=== PATIENT | female | born 1955 | race Caucasian/White ===

== ENCOUNTER → 2016-10-17 | Outpatient (CLI) | payer MEDICARE, MEDICAID ==
[~2016-10-17] MED LIST: ALBU18HF IH; ALBU25PO2 IH; ALBUTEROL; AMLO10TA2 PO; APIX5TAB PO; ASPI-614 PO; ATEN25TA PO; CEFD300C37 PO; LEVO137T2 PO; LEVO150T PO; LEVO175T2 PO; METR500T PO; MONT10TA6 PO; NAPR500T3 PO; OMEP20CA9 PO; OXYB5TAB PO; OXYC1TAB7 PO; RANI150T4 PO; SIMV10TA3 PO; SUMA25TA3 PO; TRIA1TAB2 PO; VALS160T3 PO; [UNRECOGNIZED DRUG - REMARK]
== END | disposition home or self-care (01) ==
LOC: CARD 16:01
PROVIDERS: ATTEND Internal Medicine Critical Care Medicine
DX: J45.40 Moderate persistent asthma, uncomplicated (principal)
CPT/HCPCS: 94060; 94726; 94729

== ENCOUNTER 2016-11-30 15:42 | Emergency (ER) | payer MEDICARE, MEDICAID ==
[~2016-11-30] VITALS: Ht 160 cm; Wt 100.6 kg
[2016-11-30 17:00] LABS: HEMATOCRIT 36.8 % (34.6-47.8); HEMOGLOBIN 12.4 g/dL (11.7-16.4)
[2016-11-30 17:03] LABS: BLOOD UREA NITROGEN 18 mg/dL (7-18)
[2016-11-30 18:14] VITALS: BP 113/68
== END 2016-11-30 18:19 | disposition home or self-care (01) ==
LOC: ED 17:52
DX: I48.0 Paroxysmal atrial fibrillation (principal); I10 Essential (primary) hypertension; J44.9 Chronic obstructive pulmonary disease, unspecified; M19.90 Unspecified osteoarthritis, unspecified site; E78.00 Pure hypercholesterolemia, unspecified; Z86.73 Personal history of transient ischemic attack (TIA), and cerebral infarction without residual deficits
CPT/HCPCS: 36415; 71020; 80048; 82040; 84484; 85025; 85610; 85730; 93005; 99285

== ENCOUNTER 2016-12-17 17:56 | Emergency (ER) | payer MEDICARE, MEDICAID ==
[~2016-12-17] VITALS: Ht 157.5 cm; Wt 98.2 kg
[2016-12-17] MEDS ORDERED: SODIUM CHLORIDE 0.9% 1,000 ML IV ONE (18:18)
[2016-12-17] MEDS ORDERED: SODIUM CHLORIDE 0.9% 1,000ML IVBOLUS ONE ×2 (18:30)
[2016-12-17] MEDS ORDERED: ONDANSETRON 2MG/ML, 2ML IVPush ONE (18:30)
[2016-12-17 18:34] LABS: HEMATOCRIT 40.7 % (34.6-47.8); HEMOGLOBIN 13.7 g/dL (11.7-16.4); WHITE BLOOD COUNT 6.8 x10^3/uL (3.4-10)
[2016-12-17 18:39] LABS: ASPARTATE AMINO TRANSFERASE 15 U/L (15-37); BLOOD UREA NITROGEN 20 mg/dL (7-18)
[2016-12-17] MEDS ORDERED: IRBE150T25 PO (18:41)
[2016-12-17 18:48] LABS: IS PT STATUS REG ER OR PRE ER? YES
[2016-12-17] MEDS ORDERED: POTASSIUM CHLORIDE 20 MEQ TAB.ER.PRT PO ONE (19:00)
[2016-12-17] MEDS ORDERED: ONDANSETRON 2MG/ML, 2ML ONE (19:01)
[2016-12-17] MEDS ORDERED: POTASSIUM CHLORIDE 20 MEQ TAB.ER.PRT ONE (19:10)
[2016-12-17 19:24] LABS: PATH.CAST-FLAG NOT PRESENT; SPERM-FLAG NOT PRESENT; SRC-FLAG NOT PRESENT; XTAL-FLAG NOT PRESENT; YLC-FLAG NOT PRESENT
[2016-12-17 19:44] VITALS: BP 116/90
== END 2016-12-17 20:24 | disposition home or self-care (01) ==
LOC: ED 18:23
DX: N30.90 Cystitis, unspecified without hematuria (principal); E87.6 Hypokalemia; R53.1 Weakness; E78.5 Hyperlipidemia, unspecified; I10 Essential (primary) hypertension; I48.91 Unspecified atrial fibrillation; J44.9 Chronic obstructive pulmonary disease, unspecified; J45.909 Unspecified asthma, uncomplicated; E78.00 Pure hypercholesterolemia, unspecified; E07.9 Disorder of thyroid, unspecified; Z90.710 Acquired absence of both cervix and uterus; Z90.49 Acquired absence of other specified parts of digestive tract; Z88.8 Allergy status to other drugs, medicaments and biological substances
CPT/HCPCS: 36415; 71010; 80053; 81001; 84484; 85025; 87086; 93005; 96361; 96374; 99285; J2405; J7030

== ENCOUNTER → 2017-01-10 | Outpatient (CLI) | payer MEDICARE, MEDICAID ==
[~2017-01-10] MED LIST changes: +IRBE150T25 PO; +LEVO150T5 PO; +META800T PO; +breo INH
[2017-01-10 15:40] LABS: ASPARTATE AMINO TRANSFERASE 14 U/L (15-37); BLOOD UREA NITROGEN 24 mg/dL (7-18)
== END | disposition home or self-care (01) ==
LOC: CFH 13:41
PROVIDERS: ATTEND Internal Medicine Cardiovascular Disease
DX: I10 Essential (primary) hypertension (principal); I48.0 Paroxysmal atrial fibrillation
CPT/HCPCS: 36415; 71020; 80053; 85610; 85730

== ENCOUNTER 2017-01-13 08:00 | Observation (INO) | payer MEDICARE, MEDICAID ==
[~2017-01-13] VITALS: Ht 160 cm; Wt 100.3 kg
[~2017-01-13 08:00] MED LIST changes: -LEVO150T5 PO; -META800T PO; -breo INH
[2017-01-13] MEDS ORDERED: SODIUM CHLORIDE 0.9% 1,000 ML IV SCH (08:18)
[2017-01-13 08:24] VITALS: BP 127/87
[2017-01-13] MEDS ORDERED: CEFAZOLIN PMX 1GM/50ML 50 ML IVPB ONE (08:30)
[2017-01-13] MEDS ORDERED: breo INH (08:36)
[2017-01-13] MEDS ORDERED: META800T PO (08:36)
[2017-01-13] MEDS ORDERED: APIX5TAB PO (08:36)
[2017-01-13] MEDS ORDERED: LEVO150T5 PO (08:36)
[2017-01-13 08:52] LABS: HEMATOCRIT 41.7 % (34.6-47.8); HEMOGLOBIN 14.3 g/dL (11.7-16.4); WHITE BLOOD COUNT 5.6 x10^3/uL (3.4-10)
[2017-01-13] MEDS ORDERED: FENTANYL PF 100 MCG/2ML ONE (09:57)
[2017-01-13] MEDS ORDERED: CEFAZOLIN 1,000 MG ONE (09:57)
[2017-01-13] MEDS ORDERED: LIDOCAINE 2%, 20ML ONE ×2 (09:57→10:04)
[2017-01-13] MEDS ORDERED: MIDAZOLAM 1 MG/ML, 5ML ONE (09:57)
[2017-01-13] MEDS ORDERED: CEFAZOLIN PMX 1GM/50ML 50 ML ONE (09:57)
[2017-01-13] MEDS ORDERED: ZOLPIDEM 5MG TABLET PO PRN (11:00)
[2017-01-13 11:54] VITALS: BP 122/81
[2017-01-13] MEDS: ALBUTEROL SULFATE 2.5 MG/3 ML NPPB SCH ×3 (12:00→20:00)
[2017-01-13] MEDS: BREO MC SCH ×2 (12:00→19:25)
[2017-01-13 13:04] VITALS: BP 115/70
[2017-01-13] MEDS: HYDROcodone/APAP 5/325 TABLET PO PRN ×2 (15:36→17:42)
[2017-01-13] MEDS: OMEPRAZOLE 20 MG CAPSULE.DR PO SCH (15:37)
[2017-01-13] MEDS: CEFAZOLIN PMX 1GM/50ML 50 ML IVPB SCH ×2 (15:39→20:52)
[2017-01-13 15:40] VITALS: BP 114/71
[2017-01-13 19:00] VITALS: BP 112/78
[2017-01-13] MEDS: METAXALONE 800 MG HOMEMEDPO SCH (20:50)
[2017-01-13] MEDS: SODIUM CHLORIDE FLUSH 10ML SYR IVF SCH (20:52)
[2017-01-13] MEDS: APIXABAN 5 MG TABLET PO SCH (20:52)
[2017-01-13] MEDS ORDERED: SIMVASTATIN 10 MG TABLET PO SCH (21:00)
[2017-01-13] MEDS ORDERED: IRBESARTAN 150 MG TABLET PO ONE (21:30)
[2017-01-14 02:20] VITALS: BP 103/71
[2017-01-14] MEDS: BREO MC SCH (04:00)
[2017-01-14] MEDS: HYDROcodone/APAP 5/325 TABLET PO PRN (04:07)
[2017-01-14] MEDS: LEVOTHYROXINE 150 MCG TABLET PO SCH ×2 (06:00→08:15)
[2017-01-14] MEDS: METAXALONE 800 MG HOMEMEDPO SCH (08:01)
[2017-01-14] MEDS: OMEPRAZOLE 20 MG CAPSULE.DR PO SCH (08:01)
[2017-01-14] MEDS: APIXABAN 5 MG TABLET PO SCH (08:01)
[2017-01-14] MEDS: CEFAZOLIN PMX 1GM/50ML 50 ML IVPB SCH (08:02)
[2017-01-14] MEDS: SODIUM CHLORIDE FLUSH 10ML SYR IVF SCH (08:02)
[2017-01-14 08:03] VITALS: BP 118/78
[2017-01-14] MEDS ORDERED: HYDR-3240 PO (08:32)
[2017-01-14] MEDS ORDERED: BREO INH SCH (09:00)
[2017-01-14] MEDS ORDERED: AMLODIPINE 5 MG TABLET PO SCH (09:00)
[2017-01-14] MEDS ORDERED: TRIAMTERENE-HCTZ 37.5/25 MG TABLET PO SCH (09:00)
[2017-01-14] MEDS ORDERED: NAPROXEN 500 MG TABLET PO SCH (09:00)
[2017-01-14] MEDS ORDERED: OXYBUTYNIN CHLORIDE 5 MG TABLET PO SCH (09:00)
[2017-01-14] MEDS ORDERED: IRBESARTAN 150 MG TABLET PO SCH (09:00)
== END 2017-01-14 11:33 | disposition home or self-care (01) ==
LOC: CACL 08:00 → ORIP 10:46 → 5SO 11:16 → DCLOUNGE 01-14 11:15
PROVIDERS: ADMIT Internal Medicine Cardiovascular Disease; ATTEND Internal Medicine Cardiovascular Disease
DX: I49.5 Sick sinus syndrome (principal); I48.91 Unspecified atrial fibrillation; I44.30 Unspecified atrioventricular block
CPT/HCPCS: 33208; 36415; 71020; 85025; 96365; 96375; 99156; 99157; C1779; C1785; C1892; G0378; J0690; J2250; J3010; J3490

== ENCOUNTER → 2017-04-02 | Outpatient (CLI) | payer MEDICARE, MEDICAID ==
[~2017-04-02] MED LIST changes: +HYDR-3240 PO; +LEVO150T5 PO; +META800T PO; -NAPR500T3 PO; +NAPR500T4 PO; +breo INH
[2017-04-02 15:28] LABS: PATH.CAST-FLAG NOT PRESENT; SPERM-FLAG NOT PRESENT; SRC-FLAG NOT PRESENT; XTAL-FLAG NOT PRESENT; YLC-FLAG NOT PRESENT
== END | disposition home or self-care (01) ==
LOC: CFH 14:38
DX: R10.32 Left lower quadrant pain (principal); R10.31 Right lower quadrant pain
CPT/HCPCS: 36415; 81001; 85651; 87086

== ENCOUNTER → 2017-04-03 | Outpatient (CLI) | payer MEDICARE, MEDICAID ==
[~2017-04-03] MED LIST changes: +OMNIPAQUE 350 MG/ML, 100ML BOTTLE ONE
== END | disposition home or self-care (01) ==
LOC: CFH 08:25
DX: K57.30 Diverticulosis of large intestine without perforation or abscess without bleeding (principal); R59.1 Generalized enlarged lymph nodes; J98.11 Atelectasis; M51.36 Other intervertebral disc degeneration, lumbar region; M16.0 Bilateral primary osteoarthritis of hip; M12.88 Other specific arthropathies, not elsewhere classified, other specified site; Z98.890 Other specified postprocedural states
CPT/HCPCS: 74177; 82565; Q9967

== ENCOUNTER 2017-04-30 17:24 | Emergency (ER) | payer MEDICARE, MEDICAID ==
[~2017-04-30] VITALS: Ht 160 cm; Wt 99.5 kg
[~2017-04-30 17:24] MED LIST changes: -OMNIPAQUE 350 MG/ML, 100ML BOTTLE ONE
[2017-04-30] MEDS ORDERED: SODIUM CHLORIDE 0.9% 1,000 ML IV ONE (17:33)
[2017-04-30] MEDS ORDERED: SODIUM CHLORIDE FLUSH 10ML SYR IVF ONE (18:00)
[2017-04-30 18:04] LABS: BASOPHILS # (AUTO) 0.02 x10^3/uL (0-0.1); BASOPHILS % (AUTO) 0 % (0-1); EOSINOPHILS % (AUTO) 1 % (1-7); LYMPHOCYTES # (AUTO) 1.78 x10^3/uL (1-3.4); LYMPHOCYTES % (AUTO) 27 % (22-44); MD NO; MEAN CORPUSCULAR HEMOGLOBIN 29.9 pg (27.0-34.8); MEAN CORPUSCULAR HGB CONC 33.7 g/dL (32.4-35.8); MEAN CORPUSCULAR VOLUME 88.7 fL (80-100); MEAN PLATELET VOLUME 8.2 fL (7.4-10.4); MONOCYTES # (AUTO) 0.35 x10^3/uL (0.2-0.8); MONOCYTES % (AUTO) 5 % (2-9); NEUTROPHILS # (AUTO) 4.48 x10^3/uL (1.8-6.8); NEUTROPHILS % (AUTO) 67 % (42-75); PLATELET COUNT 355 x10^3/uL (130-400); RED BLOOD COUNT 4.79 x10^6/uL (3.82-5.3); RED CELL DISTRIBUTION WIDTH 14.3 % (9.6-15.2)
[2017-04-30 18:11] LABS: ALANINE AMINOTRANSFERASE 21 U/L (12-78); ALBUMIN 3.8 g/dL (3.4-5.0); ANION GAP 9 mmol/L (5-15); CALCIUM 8.2 mg/dL (8.5-10.1); CHLORIDE 103 mmol/L (98-107)
[2017-04-30 18:15] LABS: ALKALINE PHOSPHATASE 132 U/L (45-117); BILIRUBIN,TOTAL 0.1 mg/dL (0.2-1.0); TROPONIN I < 0.015 ng/mL (0.000-0.045)
[2017-04-30 19:05] VITALS: BP 118/76
== END 2017-04-30 19:08 | disposition home or self-care (01) ==
LOC: ED 18:40
DX: R06.00 Dyspnea, unspecified (principal); R19.7 Diarrhea, unspecified; I10 Essential (primary) hypertension; E78.5 Hyperlipidemia, unspecified; J44.9 Chronic obstructive pulmonary disease, unspecified; Z86.73 Personal history of transient ischemic attack (TIA), and cerebral infarction without residual deficits; Z90.710 Acquired absence of both cervix and uterus
CPT/HCPCS: 36415; 71045; 80053; 83880; 84484; 85025; 93005; 99285

== ENCOUNTER 2017-07-03 10:44 | Observation (INO) | payer MEDICARE, MEDICAID ==
[~2017-07-03] VITALS: Ht 160 cm; Wt 97.1 kg
[~2017-07-03 10:44] MED LIST changes: +NAPR-685 PO; -NAPR500T4 PO
[2017-07-03] MEDS ORDERED: SODIUM CHLORIDE FLUSH 10ML SYR IVF ONE (11:30)
[2017-07-03] MEDS ORDERED: ASPIRIN 81 MG TABLET CHEW PO ONE (11:30)
[2017-07-03 11:37] LABS: BASOPHILS # (AUTO) 0.05 x10^3/uL (0-0.1); BASOPHILS % (AUTO) 1 % (0-1); EOSINOPHILS # (AUTO) 0.25 x10^3/uL (0-0.4); EOSINOPHILS % (AUTO) 3 % (1-7); LYMPHOCYTES # (AUTO) 2.05 x10^3/uL (1-3.4); LYMPHOCYTES % (AUTO) 26 % (22-44); MD NO; MEAN CORPUSCULAR HEMOGLOBIN 29.9 pg (27.0-34.8); MEAN CORPUSCULAR HGB CONC 33.9 g/dL (32.4-35.8); MEAN CORPUSCULAR VOLUME 88.2 fL (80-100); MEAN PLATELET VOLUME 7.9 fL (7.4-10.4); MONOCYTES # (AUTO) 0.48 x10^3/uL (0.2-0.8); MONOCYTES % (AUTO) 6 % (2-9); NEUTROPHILS # (AUTO) 5.03 x10^3/uL (1.8-6.8); NEUTROPHILS % (AUTO) 64 % (42-75); PLATELET COUNT 328 x10^3/uL (130-400); RED BLOOD COUNT 4.43 x10^6/uL (3.82-5.3); RED CELL DISTRIBUTION WIDTH 15.3 % (9.6-15.2)
[2017-07-03 11:46] LABS: ALBUMIN 3.3 g/dL (3.4-5.0); ANION GAP 9 mmol/L (5-15); CHLORIDE 107 mmol/L (98-107); CREATININE 0.91 mg/dL (0.55-1.02)
[2017-07-03 11:50] LABS: TROPONIN I < 0.015 ng/mL (0.000-0.045)
[2017-07-03] MEDS ORDERED: TIOT18CA INH (13:15)
[2017-07-03 13:42] VITALS: BP 127/80
[2017-07-03] MEDS ORDERED: CETI10CA PO (13:42)
[2017-07-03] MEDS ORDERED: FLUT1BLS INH (13:42)
[2017-07-03] MEDS ORDERED: TOPICAL (13:45)
[2017-07-03] MEDS ORDERED: BENZ28CR TP (13:45)
[2017-07-03] MEDS ORDERED: TRIA15CR53 TP (13:47)
[2017-07-03] MEDS: MAALOX/HYOSCYAMINE/LIDOCAINE 45 ML BTL PO ONE ×2 (15:00→18:30)
[2017-07-03 15:31] LABS: TROPONIN I < 0.015 ng/mL (0.000-0.045)
[2017-07-03 18:30] VITALS: BP 101/69
[2017-07-03] MEDS ORDERED: ACETAMINOPHEN 325 MG TABLET PO PRN (18:30)
[2017-07-03] MEDS ORDERED: NITROGLYCERIN 0.4 MG BOTTLE (25 TABS) SL ONE (19:13)
[2017-07-03] MEDS ORDERED: KETOROLAC 30 MG/1 ML ONE (19:20)
[2017-07-03] MEDS ORDERED: ALBUTEROL/IPRATROPIUM 2.5MG/0.5MG, 3 ML NPPB PRN (19:30)
[2017-07-03] MEDS ORDERED: KETOROLAC 30 MG/1 ML IVPush ONE (19:30)
[2017-07-03 20:00] VITALS: BP 112/75
[2017-07-03] MEDS ORDERED: OMNIPAQUE 350 MG/ML, 100ML BOTTLE ONE (20:36)
[2017-07-03] MEDS: ALBUTEROL SULFATE 90 MCG IH SCH (21:33)
[2017-07-03] MEDS: OMEPRAZOLE 20 MG CAPSULE.DR PO SCH (21:34)
[2017-07-03] MEDS: METAXALONE 800 MG PO SCH (21:34)
[2017-07-03] MEDS: IRBESARTAN 150 MG TABLET PO SCH (21:34)
[2017-07-03] MEDS: APIXABAN 5 MG TABLET PO SCH (21:34)
[2017-07-03] MEDS: SIMVASTATIN 10 MG TABLET PO SCH (21:34)
[2017-07-03] MEDS: CETIRIZINE HCL 10 MG PO SCH (21:34)
[2017-07-03] MEDS: TRIAMCINOLONE CRM 0.5%, 15GM TP SCH (21:35)
[2017-07-04 01:49] VITALS: BP 121/88
[2017-07-04] MEDS: morphine SULFATE 10 MG/ML, 1ML IVPush PRN ×3 (04:28→14:00)
[2017-07-04 05:24] LABS: TROPONIN I < 0.015 ng/mL (0.000-0.045)
[2017-07-04] MEDS: ALBUTEROL SULFATE 90 MCG IH SCH ×4 (06:30→20:54)
[2017-07-04 08:28] VITALS: BP 140/87
[2017-07-04] MEDS: (Tiotropium Bromide** (Spiriva**) 18 MCG) INH SCH (09:00)
[2017-07-04] MEDS: FLUTICASONE/VILANTEROL 200-25MCG/INH INH SCH (09:00)
[2017-07-04] MEDS: METAXALONE 800 MG PO SCH ×2 (09:00→20:54)
[2017-07-04] MEDS: OXYBUTYNIN CHLORIDE 5 MG PO SCH (09:00)
[2017-07-04] MEDS: CETIRIZINE HCL 10 MG PO SCH ×2 (09:00→20:54)
[2017-07-04] MEDS: OMEPRAZOLE 20 MG CAPSULE.DR PO SCH ×2 (09:16→20:55)
[2017-07-04] MEDS: LEVOTHYROXINE 150 MCG TABLET PO SCH (09:16)
[2017-07-04] MEDS: APIXABAN 5 MG TABLET PO SCH ×2 (09:17→20:55)
[2017-07-04] MEDS: AMLODIPINE 5 MG TABLET PO SCH (09:17)
[2017-07-04] MEDS: TRIAMCINOLONE CRM 0.5%, 15GM TP SCH ×2 (09:18→20:59)
[2017-07-04] MEDS ORDERED: MAALOX/HYOSCYAMINE/LIDOCAINE 45 ML BTL PO ONE (12:00)
[2017-07-04 13:52] VITALS: BP 139/89
[2017-07-04 18:49] VITALS: BP 102/70
[2017-07-04] MEDS ORDERED: ONDANSETRON 2MG/ML, 2ML IVPush PRN (20:30)
[2017-07-04] MEDS: IRBESARTAN 150 MG TABLET PO SCH (20:55)
[2017-07-04] MEDS: OXYcodone/APAP 5/325MG TABLET PO PRN (20:55)
[2017-07-04] MEDS: SIMVASTATIN 10 MG TABLET PO SCH (20:55)
[2017-07-05 01:57] VITALS: BP 109/74
[2017-07-05] MEDS: ALBUTEROL SULFATE 90 MCG IH SCH ×3 (06:19→16:30)
[2017-07-05 07:18] VITALS: BP 126/89
[2017-07-05] MEDS: OXYBUTYNIN CHLORIDE 5 MG PO SCH (09:44)
[2017-07-05] MEDS: CETIRIZINE HCL 10 MG PO SCH (09:44)
[2017-07-05] MEDS: METAXALONE 800 MG PO SCH (09:44)
[2017-07-05] MEDS: (Tiotropium Bromide** (Spiriva**) 18 MCG) INH SCH (09:44)
[2017-07-05] MEDS: FLUTICASONE/VILANTEROL 200-25MCG/INH INH SCH (09:45)
[2017-07-05] MEDS: AMLODIPINE 5 MG TABLET PO SCH (09:53)
[2017-07-05] MEDS: APIXABAN 5 MG TABLET PO SCH (09:53)
[2017-07-05] MEDS: LEVOTHYROXINE 150 MCG TABLET PO SCH (09:53)
[2017-07-05] MEDS: OMEPRAZOLE 20 MG CAPSULE.DR PO SCH (09:53)
[2017-07-05] MEDS: TRIAMCINOLONE CRM 0.5%, 15GM TP SCH (09:54)
[2017-07-05] MEDS: OXYcodone/APAP 5/325MG TABLET PO PRN (10:03)
[2017-07-05 10:14] VITALS: BP 126/87
[2017-07-05] MEDS ORDERED: CALCIUM CARBONATE 500 MG TAB.CHEW PO/NG ONE (12:00)
[2017-07-05 13:33] VITALS: BP 107/72
[2017-07-05] MEDS ORDERED: LORazepam 2 MG/ML, 1ML IVPush ONE (14:00)
[2017-07-05] MEDS ORDERED: CALCIUM CARBONATE 500 MG TAB.CHEW PO PRN (14:00)
[2017-07-05] MEDS ORDERED: MAALOX/HYOSCYAMINE/LIDOCAINE 45 ML BTL PO ONE (14:00)
[2017-07-05] MEDS ORDERED: CALC200T24 PO (14:54)
== END 2017-07-05 18:21 | disposition home or self-care (01) ==
LOC: ED 12:29 → EDIP 12:30 → INTOOBSV 12:30 → ED 12:34 → 5SO 13:41
PROVIDERS: ADMIT Internal Medicine; ATTEND Internal Medicine
DX: R07.89 Other chest pain (principal); E66.9 Obesity, unspecified; E78.00 Pure hypercholesterolemia, unspecified; E78.5 Hyperlipidemia, unspecified; E89.0 Postprocedural hypothyroidism; I10 Essential (primary) hypertension; G47.33 Obstructive sleep apnea (adult) (pediatric); I48.91 Unspecified atrial fibrillation; J44.9 Chronic obstructive pulmonary disease, unspecified; K21.9 Gastro-esophageal reflux disease without esophagitis; Z86.73 Personal history of transient ischemic attack (TIA), and cerebral infarction without residual deficits; Z68.37 Body mass index [BMI] 37.0-37.9, adult; M19.90 Unspecified osteoarthritis, unspecified site; K57.90 Diverticulosis of intestine, part unspecified, without perforation or abscess without bleeding; Z79.82 Long term (current) use of aspirin; Z87.891 Personal history of nicotine dependence
CPT/HCPCS: 36415; 71045; 71275; 74018; 76700; 80048; 82040; 82150; 83690; 84484; 85025; 93005; 96374; 96375; 96376; 99285; G0378; J1885; J2270; J2405; Q9967

== ENCOUNTER 2017-08-13 18:55 | Inpatient (IN) | payer MEDICARE, MEDICAID ==
[~2017-08-13] VITALS: Ht 160 cm; Wt 97.5 kg
[~2017-08-13 18:55] MED LIST changes: -TRIA1TAB5 PO
[2017-08-13] MEDS ORDERED: methylPREDNISolone SOD SUCC 125 MG/2 ML IVP ONE (19:30)
[2017-08-13 19:40] LABS: BASOPHILS # (AUTO) 0.06 x10^3/uL (0-0.1); BASOPHILS % (AUTO) 1 % (0-1); EOSINOPHILS # (AUTO) 0.25 x10^3/uL (0-0.4); EOSINOPHILS % (AUTO) 2 % (1-7); LYMPHOCYTES # (AUTO) 2.58 x10^3/uL (1-3.4); LYMPHOCYTES % (AUTO) 26 % (22-44); MD NO; MEAN CORPUSCULAR HEMOGLOBIN 30.1 pg (27.0-34.8); MEAN CORPUSCULAR HGB CONC 33.8 g/dL (32.4-35.8); MEAN PLATELET VOLUME 7.4 fL (7.4-10.4); MONOCYTES # (AUTO) 0.59 x10^3/uL (0.2-0.8); MONOCYTES % (AUTO) 6 % (2-9); NEUTROPHILS # (AUTO) 6.56 x10^3/uL (1.8-6.8); NEUTROPHILS % (AUTO) 65 % (42-75); PLATELET COUNT 327 x10^3/uL (130-400); RED BLOOD COUNT 4.39 x10^6/uL (3.82-5.3); RED CELL DISTRIBUTION WIDTH 17.4 % (9.6-15.2)
[2017-08-13 19:46] LABS: INTERNATIONAL NORMALIZED RATIO 0.89 (0.93-1.1); PROTHROMBIN TIME 9.3 Seconds (9.6-11.5)
[2017-08-13] MEDS ORDERED: ALBUTEROL/IPRATROPIUM 2.5MG/0.5MG, 3 ML ONE (19:47)
[2017-08-13 19:50] LABS: ANION GAP 11 mmol/L (5-15); CALCIUM 7.9 mg/dL (8.5-10.1); CHLORIDE 104 mmol/L (98-107)
[2017-08-13 19:51] LABS: ALANINE AMINOTRANSFERASE 23 U/L (12-78); ALBUMIN 3.2 g/dL (3.4-5.0)
[2017-08-13 19:54] LABS: BILIRUBIN,TOTAL 0.2 mg/dL (0.2-1.0); TOTAL PROTEIN 6.7 g/dL (6.4-8.2); TROPONIN I < 0.015 ng/mL (0.000-0.045)
[2017-08-13] MEDS ORDERED: ALBUTEROL/IPRATROPIUM 2.5MG/0.5MG, 3 ML NPPB SCH (20:00)
[2017-08-13 20:05] LABS: ALKALINE PHOSPHATASE 93 U/L (45-117)
[2017-08-13] MEDS ORDERED: methylPREDNISolone SOD SUCC 125 MG/2 ML ONE (20:18)
[2017-08-13] MEDS ORDERED: MORPHINE SULFATE 4 MG/ML, 1ML ONE (20:18)
[2017-08-13] MEDS: MORPHINE SULFATE 4 MG/ML, 1ML IVPush PRN ×2 (20:45→20:48)
[2017-08-13] MEDS ORDERED: OMNIPAQUE 350 MG/ML, 100ML BOTTLE ONE (21:07)
[2017-08-13] MEDS ORDERED: TRIA1TAB5 PO (22:25)
[2017-08-13] MEDS ORDERED: SODIUM CHLORIDE FLUSH 10ML SYR IVF PRN (22:30)
[2017-08-13 23:30] VITALS: BP 164/84
[2017-08-14] MEDS ORDERED: KETOROLAC 30 MG/1 ML IVPush ONE
[2017-08-14 01:30] VITALS: BP 118/80
[2017-08-14] MEDS ORDERED: hydrALAzine 20 MG/ML, 1ML IVPush PRN (02:30)
[2017-08-14] MEDS ORDERED: ACETAMINOPHEN 325 MG TABLET PO PRN (02:30)
[2017-08-14] MEDS ORDERED: DOCUSATE 100 MG CAPSULE PO PRN (02:30)
[2017-08-14] MEDS ORDERED: LABETALOL 5MG/ML, 20ML IVPush PRN (02:30)
[2017-08-14] MEDS ORDERED: POLYETHYLENE GLYCOL 17 GM PACKET PO PRN (02:30)
[2017-08-14] MEDS ORDERED: PROMETHAZINE 25 MG/ML, 1ML IM PRN (02:30)
[2017-08-14] MEDS ORDERED: ALBUTEROL SULFATE 2.5 MG/3 ML HHN PRN (03:00)
[2017-08-14 03:21] LABS: FREE T4 (FREE THYROXINE) 1.13 ng/dL (0.76-1.46); THYROID STIMULATING HORMONE 3.59 mIU/L (0.358-3.740)
[2017-08-14] MEDS ORDERED: MORPHINE SULFATE 4 MG/ML, 1ML ONE ×2 (03:28→21:17)
[2017-08-14 03:30] LABS: HEMOGLOBIN A1C 5.7 % (4.2-6.3)
[2017-08-14] MEDS: morphine SULFATE 10 MG/ML, 1ML IVPush PRN ×2 (03:34→21:24)
[2017-08-14] MEDS: D5%-0.9% NACL+KCL 20MEQ 1,000 ML IV SCH ×3 (03:36→21:23)
[2017-08-14 03:57] LABS: MICROSCOPIC NOT IND
[2017-08-14] MEDS ORDERED: ALBUTEROL SULFATE 2.5 MG/3 ML NPPB PRN (04:00)
[2017-08-14 04:02] LABS: CULTURE INDICATED? NO
[2017-08-14] MEDS: OXYcodone IR 5MG TABLET PO PRN ×4 (04:39→22:41)
[2017-08-14] MEDS: ONDANSETRON ODT 4 MG PO PRN ×3 (04:45→21:24)
[2017-08-14] MEDS ORDERED: IPRATROPIUM 0.5 MG/2.5 ML INHA ONE (06:58)
[2017-08-14 07:55] VITALS: BP 106/73
[2017-08-14] MEDS ORDERED: IPRATROPIUM 0.5 MG/2.5 ML INHA HHN SCH (09:00)
[2017-08-14] MEDS: IPRATROPIUM 0.5 MG/2.5 ML INHA NPPB SCH ×3 (09:00→21:00)
[2017-08-14] MEDS ORDERED: SPIRONOLACT/HCTZ 25/25MG TABLET ONE (09:21)
[2017-08-14] MEDS: OXYBUTYNIN CHLORIDE 5 MG TABLET PO SCH (10:22)
[2017-08-14] MEDS: APIXABAN 5 MG TABLET PO SCH ×2 (10:24→21:28)
[2017-08-14] MEDS: AMLODIPINE 5 MG TABLET PO SCH (10:27)
[2017-08-14] MEDS: OMEPRAZOLE 20 MG CAPSULE.DR PO SCH ×2 (10:29→21:27)
[2017-08-14] MEDS: LEVOTHYROXINE 150 MCG TABLET PO SCH (10:31)
[2017-08-14] MEDS: FLUTICASONE/VILANTEROL 200-25MCG/INH INH SCH (10:48)
[2017-08-14] MEDS: TRIAMTERENE/HCTZ 75/50MG TABLET PO SCH (10:48)
[2017-08-14 12:28] VITALS: BP 110/73
[2017-08-14] MEDS: BISACODYL 10 MG SUPP PR SCH ×2 (15:32→21:28)
[2017-08-14 18:53] VITALS: BP 129/85
[2017-08-14] MEDS: SIMVASTATIN 10 MG TABLET PO SCH (21:27)
[2017-08-14] MEDS: IRBESARTAN 150 MG TABLET PO SCH (21:28)
[2017-08-15 00:38] VITALS: BP 128/68
[2017-08-15] MEDS: IPRATROPIUM 0.5 MG/2.5 ML INHA NPPB SCH ×4 (03:00→21:00)
[2017-08-15] MEDS: BISACODYL 10 MG SUPP PR SCH ×4 (03:30→22:20)
[2017-08-15 04:51] LABS: BASOPHILS # (AUTO) 0.04 x10^3/uL (0-0.1); BASOPHILS % (AUTO) 1 % (0-1); EOSINOPHILS # (AUTO) 0.12 x10^3/uL (0-0.4); EOSINOPHILS % (AUTO) 1 % (1-7); LYMPHOCYTES # (AUTO) 1.99 x10^3/uL (1-3.4); LYMPHOCYTES % (AUTO) 23 % (22-44); MD NO; MEAN CORPUSCULAR HGB CONC 33.5 g/dL (32.4-35.8); MEAN CORPUSCULAR VOLUME 89.8 fL (80-100); MEAN PLATELET VOLUME 7.3 fL (7.4-10.4); MONOCYTES # (AUTO) 0.72 x10^3/uL (0.2-0.8); MONOCYTES % (AUTO) 8 % (2-9); NEUTROPHILS # (AUTO) 5.91 x10^3/uL (1.8-6.8); NEUTROPHILS % (AUTO) 67 % (42-75); PLATELET COUNT 291 x10^3/uL (130-400); RED BLOOD COUNT 4.06 x10^6/uL (3.82-5.3); RED CELL DISTRIBUTION WIDTH 17.1 % (9.6-15.2)
[2017-08-15 04:56] LABS: ANION GAP 8 mmol/L (5-15); CALCIUM 8.2 mg/dL (8.5-10.1); CHLORIDE 108 mmol/L (98-107)
[2017-08-15 05:00] LABS: ALANINE AMINOTRANSFERASE 25 U/L (12-78); ALKALINE PHOSPHATASE 68 U/L (45-117); BILIRUBIN,TOTAL 0.4 mg/dL (0.2-1.0); CHOL/HDL RATIO 3.8; CHOLESTEROL, TOTAL 199 mg/dL (140-239); CREATININE 0.78 mg/dL (0.55-1.02); HDL CHOL % 27 % (28-40); HDL CHOLESTEROL (DIRECT) 53 mg/dL (40-60); LDL CHOLESTEROL,CALCULATED 114 mg/dL (54-169); LDL/HDL RATIO 2.2 (0.5-3.0); TRIGLYCERIDES 159 mg/dL (50-200); VLDL CHOLESTEROL 32 mg/dL (0-25)
[2017-08-15 08:15] VITALS: BP 130/88
[2017-08-15] MEDS: TRIAMTERENE/HCTZ 75/50MG TABLET PO SCH (09:05)
[2017-08-15] MEDS: D5%-0.9% NACL+KCL 20MEQ 1,000 ML IV SCH (09:05)
[2017-08-15] MEDS: OXYBUTYNIN CHLORIDE 5 MG TABLET PO SCH (09:06)
[2017-08-15] MEDS: FLUTICASONE/VILANTEROL 200-25MCG/INH INH SCH (09:06)
[2017-08-15] MEDS: AMLODIPINE 5 MG TABLET PO SCH (09:06)
[2017-08-15] MEDS: APIXABAN 5 MG TABLET PO SCH ×2 (09:06→20:38)
[2017-08-15] MEDS: OMEPRAZOLE 20 MG CAPSULE.DR PO SCH ×2 (09:06→20:38)
[2017-08-15] MEDS: LEVOTHYROXINE 150 MCG TABLET PO SCH (09:06)
[2017-08-15] MEDS: OXYcodone IR 5MG TABLET PO PRN ×3 (11:47→22:47)
[2017-08-15 13:29] VITALS: BP 119/90
[2017-08-15] MEDS: LACTULOSE 20 GM/30 ML UDC PO SCH ×2 (13:47→20:38)
[2017-08-15] MEDS ORDERED: MAALOX/HYOSCYAMINE/LIDOCAINE 45 ML BTL PO PRN (14:00)
[2017-08-15] MEDS: morphine SULFATE 10 MG/ML, 1ML IVPush PRN (16:48)
[2017-08-15 18:48] VITALS: BP 115/77
[2017-08-15] MEDS: SIMVASTATIN 10 MG TABLET PO SCH (20:38)
[2017-08-15] MEDS: IRBESARTAN 150 MG TABLET PO SCH (20:41)
[2017-08-16] MEDS ORDERED: MORPHINE SULFATE 4 MG/ML, 1ML ONE ×2 (00:14→23:26)
[2017-08-16] MEDS: morphine SULFATE 10 MG/ML, 1ML IVPush PRN ×2 (00:18→23:29)
[2017-08-16 01:29] VITALS: BP 111/76
[2017-08-16] MEDS: IPRATROPIUM 0.5 MG/2.5 ML INHA NPPB SCH ×3 (03:00→14:30)
[2017-08-16] MEDS: BISACODYL 10 MG SUPP PR SCH ×4 (04:26→22:30)
[2017-08-16] MEDS: OXYcodone IR 5MG TABLET PO PRN (05:01)
[2017-08-16 07:08] VITALS: BP 105/71
[2017-08-16] MEDS: LACTULOSE 20 GM/30 ML UDC PO SCH ×2 (09:43→20:58)
[2017-08-16] MEDS: OMEPRAZOLE 20 MG CAPSULE.DR PO SCH ×2 (09:44→21:03)
[2017-08-16] MEDS: OXYBUTYNIN CHLORIDE 5 MG TABLET PO SCH (09:44)
[2017-08-16] MEDS: TRIAMTERENE/HCTZ 75/50MG TABLET PO SCH (09:44)
[2017-08-16] MEDS: AMLODIPINE 5 MG TABLET PO SCH (09:44)
[2017-08-16] MEDS: LEVOTHYROXINE 150 MCG TABLET PO SCH (09:44)
[2017-08-16] MEDS: APIXABAN 5 MG TABLET PO SCH ×2 (09:44→20:58)
[2017-08-16] MEDS: FLUTICASONE/VILANTEROL 200-25MCG/INH INH SCH (09:48)
[2017-08-16 12:38] VITALS: BP 131/83
[2017-08-16 20:00] VITALS: BP 121/85
[2017-08-16] MEDS: SIMVASTATIN 10 MG TABLET PO SCH (20:58)
[2017-08-16] MEDS: IRBESARTAN 150 MG TABLET PO SCH (20:59)
[2017-08-17] MEDS ORDERED: MORPHINE SULFATE 4 MG/ML, 1ML ONE (02:49)
[2017-08-17] MEDS ORDERED: IPRATROPIUM 0.5 MG/2.5 ML INHA NPPB PRN (03:00)
[2017-08-17 03:09] VITALS: BP 117/70
[2017-08-17] MEDS: BISACODYL 10 MG SUPP PR SCH ×2 (04:30→21:45)
[2017-08-17 07:26] VITALS: BP 111/76
[2017-08-17] MEDS: TRIAMTERENE/HCTZ 75/50MG TABLET PO SCH (09:51)
[2017-08-17] MEDS: FLUTICASONE/VILANTEROL 200-25MCG/INH INH SCH (09:51)
[2017-08-17] MEDS: AMLODIPINE 5 MG TABLET PO SCH (09:51)
[2017-08-17] MEDS: LEVOTHYROXINE 150 MCG TABLET PO SCH (09:52)
[2017-08-17] MEDS: OXYBUTYNIN CHLORIDE 5 MG TABLET PO SCH (09:52)
[2017-08-17] MEDS: ACETAMINOPHEN 325 MG TABLET PO SCH ×3 (09:52→20:00)
[2017-08-17] MEDS: OMEPRAZOLE 20 MG CAPSULE.DR PO SCH ×2 (09:52→21:45)
[2017-08-17] MEDS: APIXABAN 5 MG TABLET PO SCH (09:52)
[2017-08-17] MEDS: LACTOBACILLUS CHEW TABLET PO SCH ×3 (09:52→21:45)
[2017-08-17] MEDS: LACTULOSE 20 GM/30 ML UDC PO SCH (09:54)
[2017-08-17] MEDS: SODIUM CHLORIDE 0.9% 1,000 ML IV SCH (11:05)
[2017-08-17 13:39] VITALS: BP 121/83
[2017-08-17] MEDS: OXYcodone IR 5MG TABLET PO PRN (14:28)
[2017-08-17] MEDS: MORPHINE SULFATE 4 MG/ML, 1ML IVPush PRN ×2 (16:54→21:46)
[2017-08-17 19:15] VITALS: BP 114/71
[2017-08-17] MEDS: SIMVASTATIN 10 MG TABLET PO SCH (21:46)
[2017-08-17] MEDS: IRBESARTAN 150 MG TABLET PO SCH (21:46)
[2017-08-18] MEDS: ACETAMINOPHEN 325 MG TABLET PO SCH ×4 (02:00→21:19)
[2017-08-18 02:07] VITALS: BP 105/73
[2017-08-18] MEDS: MORPHINE SULFATE 4 MG/ML, 1ML IVPush PRN ×4 (03:04→21:27)
[2017-08-18] MEDS ORDERED: HEPARIN 5,000 UNITS/ML, 1ML IV ONE (07:00)
[2017-08-18 07:25] VITALS: BP 126/81
[2017-08-18] MEDS: SODIUM CHLORIDE 0.9% 1,000 ML IV SCH (10:29)
[2017-08-18] MEDS: BISACODYL 10 MG SUPP PR SCH ×2 (10:30→21:19)
[2017-08-18] MEDS: FLUTICASONE/VILANTEROL 200-25MCG/INH INH SCH (10:30)
[2017-08-18] MEDS: LACTOBACILLUS CHEW TABLET PO SCH ×3 (10:30→21:18)
[2017-08-18] MEDS: OXYBUTYNIN CHLORIDE 5 MG TABLET PO SCH (10:30)
[2017-08-18] MEDS: LEVOTHYROXINE 150 MCG TABLET PO SCH (10:30)
[2017-08-18] MEDS: OMEPRAZOLE 20 MG CAPSULE.DR PO SCH ×2 (10:30→21:18)
[2017-08-18 13:09] VITALS: BP 122/85
[2017-08-18 19:40] VITALS: BP 114/78
[2017-08-18] MEDS: HEPARIN 25,000 UNITS/500ML PMX 500 ML IV PRN (19:43)
[2017-08-18] MEDS: OXYcodone IR 5MG TABLET PO PRN (19:47)
[2017-08-18] MEDS: IRBESARTAN 150 MG TABLET PO SCH (21:19)
[2017-08-18] MEDS: SIMVASTATIN 10 MG TABLET PO SCH (21:19)
[2017-08-19 02:08] VITALS: BP 124/83
[2017-08-19] MEDS: MORPHINE SULFATE 4 MG/ML, 1ML IVPush PRN ×4 (02:13→21:08)
[2017-08-19] MEDS: ACETAMINOPHEN 325 MG TABLET PO SCH ×4 (02:20→20:28)
[2017-08-19] MEDS: SODIUM CHLORIDE 0.9% 1,000 ML IV SCH ×2 (04:15→21:07)
[2017-08-19 06:48] VITALS: BP 135/91
[2017-08-19] MEDS: HEPARIN 5,000 UNITS/ML, 1ML IV PRN (08:49)
[2017-08-19] MEDS: LACTOBACILLUS CHEW TABLET PO SCH ×3 (08:54→21:07)
[2017-08-19] MEDS: OMEPRAZOLE 20 MG CAPSULE.DR PO SCH ×2 (08:54→21:07)
[2017-08-19] MEDS: LEVOTHYROXINE 150 MCG TABLET PO SCH (08:55)
[2017-08-19] MEDS: OXYBUTYNIN CHLORIDE 5 MG TABLET PO SCH (08:55)
[2017-08-19] MEDS: FLUTICASONE/VILANTEROL 200-25MCG/INH INH SCH (08:56)
[2017-08-19] MEDS: BISACODYL 10 MG SUPP PR SCH ×2 (09:16→21:07)
[2017-08-19 13:18] VITALS: BP 117/84
[2017-08-19 19:40] VITALS: BP 107/74
[2017-08-19] MEDS: IRBESARTAN 150 MG TABLET PO SCH (21:07)
[2017-08-19] MEDS: SIMVASTATIN 10 MG TABLET PO SCH (21:07)
[2017-08-19] MEDS: HEPARIN 25,000 UNITS/500ML PMX 500 ML IV PRN (22:12)
[2017-08-20 00:31] VITALS: BP 117/81
[2017-08-20] MEDS: ACETAMINOPHEN 325 MG TABLET PO SCH (01:51)
[2017-08-20] MEDS: HEPARIN 5,000 UNITS/ML, 1ML IV PRN (05:48)
[2017-08-20 07:22] VITALS: BP 133/88
[2017-08-20] MEDS: FLUTICASONE/VILANTEROL 200-25MCG/INH INH SCH (09:20)
[2017-08-20] MEDS: LEVOTHYROXINE 150 MCG TABLET PO SCH (09:20)
[2017-08-20] MEDS: LACTOBACILLUS CHEW TABLET PO SCH ×3 (09:20→21:36)
[2017-08-20] MEDS: OMEPRAZOLE 20 MG CAPSULE.DR PO SCH ×2 (09:20→21:37)
[2017-08-20] MEDS: OXYBUTYNIN CHLORIDE 5 MG TABLET PO SCH (09:20)
[2017-08-20] MEDS: SIMETHICONE 125 MG CHEW TAB PO SCH ×3 (09:21→19:47)
[2017-08-20] MEDS: AMLODIPINE 5 MG TABLET PO SCH (10:47)
[2017-08-20 12:29] VITALS: BP 123/87
[2017-08-20] MEDS: GLYCERIN ADULT SUPP PR PRN (13:46)
[2017-08-20] MEDS ORDERED: ACETAMINOPHEN 325 MG TABLET PO PRN (14:00)
[2017-08-20] MEDS: KETOROLAC 30 MG/1 ML IVPush PRN (14:32)
[2017-08-20] MEDS: SODIUM CHLORIDE 0.9% 1,000 ML IV SCH (16:11)
[2017-08-20 18:53] VITALS: BP 99/66
[2017-08-20] MEDS: HEPARIN 25,000 UNITS/500ML PMX 500 ML IV PRN (21:27)
[2017-08-20] MEDS: SIMVASTATIN 10 MG TABLET PO SCH (21:37)
[2017-08-20] MEDS: IRBESARTAN 150 MG TABLET PO SCH (21:37)
[2017-08-21 02:25] VITALS: BP 138/97
[2017-08-21] MEDS: GLYCERIN ADULT SUPP PR PRN (04:04)
[2017-08-21] MEDS: KETOROLAC 30 MG/1 ML IVPush PRN (05:04)
[2017-08-21 06:47] VITALS: BP 118/60
[2017-08-21] MEDS: SODIUM CHLORIDE 0.9% 1,000 ML IV SCH (08:54)
[2017-08-21] MEDS: LACTOBACILLUS CHEW TABLET PO SCH (08:55)
[2017-08-21] MEDS: SIMETHICONE 125 MG CHEW TAB PO SCH ×2 (08:55→13:18)
[2017-08-21] MEDS: LEVOTHYROXINE 150 MCG TABLET PO SCH (08:55)
[2017-08-21] MEDS: OXYBUTYNIN CHLORIDE 5 MG TABLET PO SCH (08:55)
[2017-08-21] MEDS: AMLODIPINE 5 MG TABLET PO SCH (08:55)
[2017-08-21] MEDS: FLUTICASONE/VILANTEROL 200-25MCG/INH INH SCH (08:55)
[2017-08-21] MEDS: OMEPRAZOLE 20 MG CAPSULE.DR PO SCH (08:56)
[2017-08-21 11:44] LABS: BASOPHILS # (AUTO) 0.04 x10^3/uL (0-0.1); BASOPHILS % (AUTO) 1 % (0-1); EOSINOPHILS # (AUTO) 0.16 x10^3/uL (0-0.4); EOSINOPHILS % (AUTO) 3 % (1-7); LYMPHOCYTES # (AUTO) 2.16 x10^3/uL (1-3.4); LYMPHOCYTES % (AUTO) 38 % (22-44); MD NO; MEAN CORPUSCULAR HEMOGLOBIN 29.8 pg (27.0-34.8); MEAN CORPUSCULAR HGB CONC 33.5 g/dL (32.4-35.8); MEAN CORPUSCULAR VOLUME 88.8 fL (80-100); MEAN PLATELET VOLUME 7.4 fL (7.4-10.4); MONOCYTES # (AUTO) 0.31 x10^3/uL (0.2-0.8); MONOCYTES % (AUTO) 6 % (2-9); NEUTROPHILS # (AUTO) 3.01 x10^3/uL (1.8-6.8); NEUTROPHILS % (AUTO) 53 % (42-75); PLATELET COUNT 299 x10^3/uL (130-400); RED BLOOD COUNT 4.49 x10^6/uL (3.82-5.3); RED CELL DISTRIBUTION WIDTH 16.7 % (9.6-15.2)
[2017-08-21 11:51] LABS: ANION GAP 7 mmol/L (5-15); CALCIUM 7.7 mg/dL (8.5-10.1); CHLORIDE 109 mmol/L (98-107); CREATININE 0.87 mg/dL (0.55-1.02)
[2017-08-21] MEDS ORDERED: OMNIPAQUE 350 MG/ML, 100ML BOTTLE ONE (12:50)
[2017-08-21 13:20] VITALS: BP 150/98
[2017-08-21] MEDS ORDERED: GOLYTELY 4,000ML ORAL.SOL PO ONE (14:00)
[2017-08-21] MEDS ORDERED: PINK BISMUTH 87.33 MG/5 ML ORAL SUSP PO SCH (14:00)
[2017-08-21] MEDS ORDERED: CIPR500T87 PO (14:08)
[2017-08-21] MEDS ORDERED: SIME125C67 PO (14:08)
== END 2017-08-21 16:18 | disposition home or self-care (01) | DRG 389 ==
LOC: ED 22:35 → EDIP 22:43 → 4EST 08-14 00:05 → DCLOUNGE 08-21 15:54
PROVIDERS: ADMIT Internal Medicine; ATTEND Internal Medicine
PROC: 0D9670Z Drainage of Stomach with Drainage Device, Via Natural or Artificial Opening (ICD-10-PCS; 2017-08-16)
PROC: 02HV33Z Insertion of Infusion Device into Superior Vena Cava, Percutaneous Approach (ICD-10-PCS; principal; 2017-08-18)
PROC: B548ZZA Ultrasonography of Superior Vena Cava, Guidance (ICD-10-PCS; 2017-08-18)
DX: K56.0 Paralytic ileus (principal); D68.69 Other thrombophilia; E44.0 Moderate protein-calorie malnutrition; D68.0 Von Willebrand disease; I49.5 Sick sinus syndrome; E66.01 Morbid (severe) obesity due to excess calories; I48.91 Unspecified atrial fibrillation; J45.41 Moderate persistent asthma with (acute) exacerbation; K40.90 Unilateral inguinal hernia, without obstruction or gangrene, not specified as recurrent; Z68.38 Body mass index [BMI] 38.0-38.9, adult; E78.00 Pure hypercholesterolemia, unspecified; E78.5 Hyperlipidemia, unspecified; E89.0 Postprocedural hypothyroidism; G47.33 Obstructive sleep apnea (adult) (pediatric); I10 Essential (primary) hypertension; J44.9 Chronic obstructive pulmonary disease, unspecified; K21.9 Gastro-esophageal reflux disease without esophagitis; K52.9 Noninfective gastroenteritis and colitis, unspecified; K57.90 Diverticulosis of intestine, part unspecified, without perforation or abscess without bleeding; M19.90 Unspecified osteoarthritis, unspecified site; Z79.01 Long term (current) use of anticoagulants; Z82.49 Family history of ischemic heart disease and other diseases of the circulatory system; Z82.5 Family history of asthma and other chronic lower respiratory diseases; Z86.73 Personal history of transient ischemic attack (TIA), and cerebral infarction without residual deficits; Z87.891 Personal history of nicotine dependence; Z90.710 Acquired absence of both cervix and uterus; Z95.0 Presence of cardiac pacemaker; Z88.8 Allergy status to other drugs, medicaments and biological substances; M32.9 Systemic lupus erythematosus, unspecified; K59.00 Constipation, unspecified
CPT/HCPCS: 36415; 36569; 71046; 71275; 74018; 74177; 76700; 76937; 77001; 80048; 80053; 80061; 81003; 83036; 83735; 83880; 84100; 84439; 84443; 84484; 85025; 85520; 85610; 85730; 86677; 93005; 94640; 94660; 96374; 96375; J1644; J1885; J7620; J7644; Q0162; Q9967; C1751; J2270; J2930; J3480; J7030

== ENCOUNTER → 2017-08-13 | Outpatient (CLI) | payer MEDICARE, MEDICAID ==
[~2017-08-13] MED LIST changes: +BENZ28CR TP; +CALC200T24 PO; +CETI10CA PO; +FLUT1BLS INH; +TIOT18CA INH; +TOPICAL; +TRIA15CR53 TP; +TRIA1TAB5 PO
== END | disposition home or self-care (01) ==
LOC: CFH 10:28
PROVIDERS: ATTEND Nurse Practitioner
DX: Z12.31 Encounter for screening mammogram for malignant neoplasm of breast (principal); Z13.820 Encounter for screening for osteoporosis; N95.8 Other specified menopausal and perimenopausal disorders; Z80.3 Family history of malignant neoplasm of breast
CPT/HCPCS: 77063; 77080; 77067

== ENCOUNTER → 2017-10-20 | Outpatient (CLI) | payer MEDICARE, MEDICAID ==
[~2017-10-20] MED LIST changes: +ACET325T14 PO; +ACID1TAB7 PO; +ACYC-57 PO; +CIPR500T87 PO; +DIPH25CA61 PO; +FAMO20TA7 PO; +PRED10TA14 PO; +PRED20TA PO; +SIME125C67 PO; +TRIA1TAB5 PO
== END | disposition home or self-care (01) ==
LOC: CVU 08:46
PROVIDERS: ATTEND Internal Medicine Cardiovascular Disease
DX: I35.8 Other nonrheumatic aortic valve disorders (principal); I10 Essential (primary) hypertension; I48.91 Unspecified atrial fibrillation; E78.5 Hyperlipidemia, unspecified; R06.02 Shortness of breath
CPT/HCPCS: 93306

== ENCOUNTER 2017-11-08 16:46 | Emergency (ER) | payer MEDICARE, MEDICAID ==
[~2017-11-08] VITALS: Ht 160 cm; Wt 97.5 kg
[2017-11-08] MEDS ORDERED: ONDANSETRON 2MG/ML, 2ML IVPush ONE (18:00)
[2017-11-08 18:39] LABS: BASOPHILS # (AUTO) 0.02 x10^3/uL (0-0.1); BASOPHILS % (AUTO) 0 % (0-1); EOSINOPHILS # (AUTO) 0.06 x10^3/uL (0-0.4); EOSINOPHILS % (AUTO) 1 % (1-7); LYMPHOCYTES # (AUTO) 1.76 x10^3/uL (1-3.4); LYMPHOCYTES % (AUTO) 27 % (22-44); MD NO; MEAN CORPUSCULAR HEMOGLOBIN 29.4 pg (27.0-34.8); MEAN CORPUSCULAR HGB CONC 34.4 g/dL (32.4-35.8); MEAN CORPUSCULAR VOLUME 85.7 fL (80-100); MONOCYTES # (AUTO) 0.19 x10^3/uL (0.2-0.8); MONOCYTES % (AUTO) 3 % (2-9); NEUTROPHILS % (AUTO) 68 % (42-75); PLATELET COUNT 524 x10^3/uL (130-400); RED BLOOD COUNT 4.34 x10^6/uL (3.82-5.3); RED CELL DISTRIBUTION WIDTH 14.4 % (9.6-15.2)
[2017-11-08 18:43] LABS: ALANINE AMINOTRANSFERASE 16 U/L (12-78); ALBUMIN 3.4 g/dL (3.4-5.0); ANION GAP 12 mmol/L (5-15); CALCIUM 8.1 mg/dL (8.5-10.1); CHLORIDE 99 mmol/L (98-107); CREATININE 0.96 mg/dL (0.55-1.02)
[2017-11-08 18:45] LABS: ALKALINE PHOSPHATASE 84 U/L (45-117); BILIRUBIN,TOTAL 0.4 mg/dL (0.2-1.0); TOTAL PROTEIN 7.3 g/dL (6.4-8.2); TROPONIN I < 0.015 ng/mL (0.000-0.045)
[2017-11-08] MEDS ORDERED: ONDANSETRON ODT 4 MG ONE (19:15)
[2017-11-08] MEDS ORDERED: ONDANSETRON ODT 4 MG PO ONE (19:30)
[2017-11-08 20:53] VITALS: BP 135/72
== END 2017-11-08 21:26 | disposition home or self-care (01) ==
LOC: ED 18:00
DX: R07.89 Other chest pain (principal); R11.0 Nausea; I10 Essential (primary) hypertension; E78.00 Pure hypercholesterolemia, unspecified; J44.9 Chronic obstructive pulmonary disease, unspecified; M32.9 Systemic lupus erythematosus, unspecified; I48.91 Unspecified atrial fibrillation; K59.00 Constipation, unspecified; H92.09 Otalgia, unspecified ear; R10.9 Unspecified abdominal pain; R21 Rash and other nonspecific skin eruption; Z86.73 Personal history of transient ischemic attack (TIA), and cerebral infarction without residual deficits; Z90.89 Acquired absence of other organs; Z90.49 Acquired absence of other specified parts of digestive tract; Z88.8 Allergy status to other drugs, medicaments and biological substances; Z87.891 Personal history of nicotine dependence
CPT/HCPCS: 36415; 71045; 74176; 80053; 83605; 83690; 83880; 84484; 85025; 93005; 99285; Q0162

== ENCOUNTER 2017-11-21 09:37 | Inpatient (IN) | payer MEDICARE, MEDICAID ==
[~2017-11-21] VITALS: Ht 160 cm; Wt 99.7 kg
[2017-11-21] MEDS ORDERED: OMEP20TA62 PO (10:12)
[2017-11-21 10:22] LABS: BASOPHILS # (AUTO) 0.01 x10^3/uL (0-0.1); BASOPHILS % (AUTO) 0 % (0-1); EOSINOPHILS # (AUTO) 0.03 x10^3/uL (0-0.4); EOSINOPHILS % (AUTO) 0 % (1-7); LYMPHOCYTES # (AUTO) 1.49 x10^3/uL (1-3.4); LYMPHOCYTES % (AUTO) 22 % (22-44); MD NO; MEAN CORPUSCULAR HEMOGLOBIN 29.3 pg (27.0-34.8); MEAN CORPUSCULAR HGB CONC 34.4 g/dL (32.4-35.8); MEAN PLATELET VOLUME 6.9 fL (7.4-10.4); MONOCYTES # (AUTO) 0.19 x10^3/uL (0.2-0.8); MONOCYTES % (AUTO) 3 % (2-9); NEUTROPHILS # (AUTO) 5.11 x10^3/uL (1.8-6.8); NEUTROPHILS % (AUTO) 75 % (42-75); PLATELET COUNT 559 x10^3/uL (130-400); RED BLOOD COUNT 4.79 x10^6/uL (3.82-5.3); RED CELL DISTRIBUTION WIDTH 15.1 % (9.6-15.2)
[2017-11-21] MEDS ORDERED: FAMOTIDINE 20 MG/2 ML ONE (10:22)
[2017-11-21] MEDS ORDERED: ONDANSETRON 2MG/ML, 2ML ONE (10:22)
[2017-11-21] MEDS ORDERED: MORPHINE SULFATE 4 MG/ML, 1ML ONE ×2 (10:22→13:06)
[2017-11-21 10:31] LABS: ALANINE AMINOTRANSFERASE 42 U/L (12-78); ALBUMIN 3.5 g/dL (3.4-5.0); ANION GAP 14 mmol/L (5-15); CALCIUM 8.6 mg/dL (8.5-10.1); CHLORIDE 95 mmol/L (98-107)
[2017-11-21 10:34] LABS: ALKALINE PHOSPHATASE 83 U/L (45-117); BILIRUBIN,TOTAL 0.4 mg/dL (0.2-1.0); CREATININE 1.15 mg/dL (0.55-1.02)
[2017-11-21] MEDS ORDERED: TRIA1TAB5 PO (10:35)
[2017-11-21] MEDS ORDERED: METH25VI22 IM (10:51)
[2017-11-21] MEDS ORDERED: FAMOTIDINE 20 MG/2 ML IVP ONE (11:00)
[2017-11-21] MEDS ORDERED: SODIUM CHLORIDE FLUSH 10ML SYR IVF ONE (11:00)
[2017-11-21] MEDS ORDERED: SODIUM CHLORIDE 0.9% 1,000ML IVBOLUS ONE (11:00)
[2017-11-21] MEDS ORDERED: ONDANSETRON 2MG/ML, 2ML IVPush ONE (11:00)
[2017-11-21] MEDS: MORPHINE SULFATE 4 MG/ML, 1ML IVPush PRN ×2 (11:13→13:13)
[2017-11-21] MEDS ORDERED: OMNIPAQUE 350 MG/ML, 100ML BOTTLE ONE (11:44)
[2017-11-21] MEDS ORDERED: ONDANSETRON ODT 4 MG ONE (14:27)
[2017-11-21 14:37] LABS: MICROSCOPIC NOT IND
[2017-11-21 14:42] LABS: CULTURE INDICATED? NO
[2017-11-21] MEDS ORDERED: IBUPROFEN 600 MG TABLET PO ONE (15:00)
[2017-11-21] MEDS ORDERED: IBUPROFEN 200 MG TABLET ONE (15:00)
[2017-11-21] MEDS ORDERED: ONDANSETRON ODT 4 MG PO ONE (15:00)
[2017-11-21] MEDS ORDERED: SODIUM CHLORIDE 0.9% 1,000 ML IV SCH (15:59)
[2017-11-21] MEDS ORDERED: ONDANSETRON ODT 4 MG PO PRN (16:00)
[2017-11-21] MEDS: BISACODYL 10 MG SUPP PR SCH (16:00)
[2017-11-21] MEDS ORDERED: PHARMACY MAY ADJ FOR RENAL FX MC PRN (16:30)
[2017-11-21 16:37] LABS: THYROID STIMULATING HORMONE 12.3 mIU/L (0.358-3.740)
[2017-11-21 17:33] VITALS: BP 117/82
[2017-11-21] MEDS: METOCLOPRAMIDE 5 MG/ML, 2ML IVPush SCH ×2 (18:09→20:06)
[2017-11-21 19:14] VITALS: BP 119/77
[2017-11-21] MEDS ORDERED: ALBUTEROL SULFATE 2.5 MG/3 ML NPPB PRN (19:30)
[2017-11-21] MEDS: PANTOPRAZOLE 40 MG IV IVPush SCH (20:06)
[2017-11-21] MEDS: morphine SULFATE 10 MG/ML, 1ML IVPush PRN (20:06)
[2017-11-21] MEDS: APIXABAN 5 MG TABLET PO SCH (20:07)
[2017-11-21] MEDS: IRBESARTAN 150 MG TABLET PO SCH (20:18)
[2017-11-21] MEDS: IPRATROPIUM 0.5 MG/2.5 ML INHA NPPB SCH (20:49)
[2017-11-21] MEDS: SODIUM CHLORIDE NASAL SPRAY 45ML BOTTLE NAS SCH (21:00)
[2017-11-21] MEDS: FLUTICASONE NASAL SPRAY 16GM NAS SCH (21:00)
[2017-11-22 01:30] VITALS: BP 111/77
[2017-11-22] MEDS: IPRATROPIUM 0.5 MG/2.5 ML INHA NPPB SCH ×4 (03:13→21:00)
[2017-11-22] MEDS: ONDANSETRON 2MG/ML, 2ML IVPush PRN ×2 (03:50→09:48)
[2017-11-22 05:18] LABS: BASOPHILS # (AUTO) 0.02 x10^3/uL (0-0.1); BASOPHILS % (AUTO) 0 % (0-1); EOSINOPHILS # (AUTO) 0.03 x10^3/uL (0-0.4); EOSINOPHILS % (AUTO) 1 % (1-7); LYMPHOCYTES # (AUTO) 1.07 x10^3/uL (1-3.4); LYMPHOCYTES % (AUTO) 21 % (22-44); MD NO; MEAN CORPUSCULAR HEMOGLOBIN 28.3 pg (27.0-34.8); MEAN CORPUSCULAR HGB CONC 33.4 g/dL (32.4-35.8); MEAN CORPUSCULAR VOLUME 84.7 fL (80-100); MONOCYTES # (AUTO) 0.19 x10^3/uL (0.2-0.8); MONOCYTES % (AUTO) 4 % (2-9); NEUTROPHILS # (AUTO) 3.85 x10^3/uL (1.8-6.8); NEUTROPHILS % (AUTO) 75 % (42-75); PLATELET COUNT 514 x10^3/uL (130-400); RED BLOOD COUNT 4.71 x10^6/uL (3.82-5.3); RED CELL DISTRIBUTION WIDTH 15.2 % (9.6-15.2)
[2017-11-22 05:25] LABS: ALANINE AMINOTRANSFERASE 30 U/L (12-78); ALBUMIN 3.3 g/dL (3.4-5.0); ANION GAP 11 mmol/L (5-15); CALCIUM 7.8 mg/dL (8.5-10.1); CHLORIDE 97 mmol/L (98-107); CREATININE 1.03 mg/dL (0.55-1.02)
[2017-11-22 05:28] LABS: ALKALINE PHOSPHATASE 74 U/L (45-117); BILIRUBIN,TOTAL 0.4 mg/dL (0.2-1.0); TOTAL PROTEIN 7.2 g/dL (6.4-8.2)
[2017-11-22 07:29] VITALS: BP 99/69
[2017-11-22] MEDS ORDERED: MAGNESIUM SULFATE PMX 2GM/50ML 50 ML IV ONE (07:30)
[2017-11-22] MEDS ORDERED: POTASSIUM CHLORIDE 40 MEQ in SODIUM CHLORIDE 0.9% 500 ML IV ONE (07:30)
[2017-11-22] MEDS: morphine SULFATE 10 MG/ML, 1ML IVPush PRN ×2 (08:00→11:25)
[2017-11-22] MEDS ORDERED: LEVOTHYROXINE 75 MCG TABLET ONE (08:59)
[2017-11-22] MEDS: AMLODIPINE 5 MG TABLET PO SCH (09:00)
[2017-11-22] MEDS: LEVOTHYROXINE 150 MCG TABLET PO SCH (09:00)
[2017-11-22] MEDS: FLUTICASONE/VILANTEROL 200-25MCG/INH INH SCH (09:00)
[2017-11-22] MEDS: SODIUM CHLORIDE NASAL SPRAY 45ML BOTTLE NAS SCH ×2 (09:00→21:00)
[2017-11-22] MEDS: BISACODYL 10 MG SUPP PR SCH (09:00)
[2017-11-22] MEDS: PANTOPRAZOLE 40 MG IV IVPush SCH ×2 (09:06→21:50)
[2017-11-22] MEDS: METOCLOPRAMIDE 5 MG/ML, 2ML IVPush SCH (09:06)
[2017-11-22] MEDS: FLUTICASONE NASAL SPRAY 16GM NAS SCH ×2 (09:06→21:00)
[2017-11-22] MEDS: SENNA/DOCUSATE TABLET PO SCH (09:06)
[2017-11-22] MEDS: APIXABAN 5 MG TABLET PO SCH ×2 (09:10→21:50)
[2017-11-22] MEDS ORDERED: POTASSIUM CHLORIDE 20 MEQ TAB.ER.PRT PO ONE (12:00)
[2017-11-22 13:56] VITALS: BP 116/80
[2017-11-22] MEDS: ACETAMINOPHEN 325 MG TABLET PO PRN (17:55)
[2017-11-22 19:53] VITALS: BP 116/81
[2017-11-22] MEDS: IRBESARTAN 150 MG TABLET PO SCH (21:00)
[2017-11-23] MEDS: NS + 20MEQ KCL 1,000 ML IV SCH ×3 (01:46→18:40)
[2017-11-23 01:56] VITALS: BP 111/76
[2017-11-23] MEDS: IPRATROPIUM 0.5 MG/2.5 ML INHA NPPB SCH ×3 (03:00→16:20)
[2017-11-23 05:31] LABS: BASOPHILS # (AUTO) 0.02 x10^3/uL (0-0.1); BASOPHILS % (AUTO) 0 % (0-1); EOSINOPHILS # (AUTO) 0.05 x10^3/uL (0-0.4); EOSINOPHILS % (AUTO) 1 % (1-7); LYMPHOCYTES # (AUTO) 1.06 x10^3/uL (1-3.4); LYMPHOCYTES % (AUTO) 23 % (22-44); MD NO; MEAN CORPUSCULAR HEMOGLOBIN 29.1 pg (27.0-34.8); MEAN CORPUSCULAR HGB CONC 33.6 g/dL (32.4-35.8); MEAN CORPUSCULAR VOLUME 86.6 fL (80-100); MONOCYTES % (AUTO) 4 % (2-9); NEUTROPHILS # (AUTO) 3.22 x10^3/uL (1.8-6.8); NEUTROPHILS % (AUTO) 71 % (42-75); PLATELET COUNT 474 x10^3/uL (130-400); RED BLOOD COUNT 4.74 x10^6/uL (3.82-5.3); RED CELL DISTRIBUTION WIDTH 15.6 % (9.6-15.2)
[2017-11-23 05:43] LABS: ALBUMIN 3.4 g/dL (3.4-5.0); ANION GAP 10 mmol/L (5-15); CALCIUM 7.9 mg/dL (8.5-10.1); CHLORIDE 102 mmol/L (98-107); CREATININE 1.13 mg/dL (0.55-1.02)
[2017-11-23] MEDS: ONDANSETRON 2MG/ML, 2ML IVPush PRN ×2 (06:09→21:57)
[2017-11-23 07:16] VITALS: BP 122/78
[2017-11-23] MEDS: SENNA/DOCUSATE TABLET PO SCH (09:00)
[2017-11-23] MEDS: SODIUM CHLORIDE NASAL SPRAY 45ML BOTTLE NAS SCH ×2 (09:00→21:28)
[2017-11-23] MEDS: BISACODYL 10 MG SUPP PR SCH (09:00)
[2017-11-23] MEDS: FLUTICASONE/VILANTEROL 200-25MCG/INH INH SCH (09:00)
[2017-11-23] MEDS: morphine SULFATE 10 MG/ML, 1ML IVPush PRN (09:18)
[2017-11-23] MEDS ORDERED: LEVOTHYROXINE 75 MCG TABLET ONE (09:25)
[2017-11-23] MEDS: PANTOPRAZOLE 40 MG IV IVPush SCH ×2 (09:30→21:27)
[2017-11-23] MEDS: LEVOTHYROXINE 150 MCG TABLET PO SCH (09:30)
[2017-11-23] MEDS: APIXABAN 5 MG TABLET PO SCH ×2 (09:30→21:27)
[2017-11-23] MEDS: AMLODIPINE 5 MG TABLET PO SCH (09:31)
[2017-11-23] MEDS: FLUTICASONE NASAL SPRAY 16GM NAS SCH ×2 (10:44→21:27)
[2017-11-23 12:58] VITALS: BP 120/79
[2017-11-23 13:46] VITALS: BP 107/76
[2017-11-23] MEDS ORDERED: SODIUM CHLORIDE 0.9% 1,000ML IVBOLUS ONE (15:00)
[2017-11-23] MEDS ORDERED: ALBUTEROL SULFATE 2.5 MG/3 ML NPPB SCH (16:00)
[2017-11-23] MEDS ORDERED: IPRATROPIUM 0.5 MG/2.5 ML INHA NPPB SCH (16:00)
[2017-11-23] MEDS ORDERED: SODIUM CHLORIDE 0.9%, 500ML IVBOLUS ONE (16:00)
[2017-11-23 18:30] VITALS: BP 106/73
[2017-11-23 18:52] LABS: MICROSCOPIC INDICATED
[2017-11-23] MEDS: SIMVASTATIN 10 MG TABLET PO SCH (21:27)
[2017-11-23 22:31] LABS: CLOSTRIDIUM DIFFICILE ANTIGEN NEGATIVE; CLOSTRIDIUM DIFFICILE TOXIN NEGATIVE (Negative)
[2017-11-24 01:33] VITALS: BP 120/81
[2017-11-24] MEDS: morphine SULFATE 10 MG/ML, 1ML IVPush PRN ×3 (01:56→10:11)
[2017-11-24] MEDS: NS + 20MEQ KCL 1,000 ML IV SCH ×3 (01:59→20:33)
[2017-11-24] MEDS: ALBUTEROL/IPRATROPIUM 2.5MG/0.5MG, 3 ML NPPB SCH ×5 (02:40→18:40)
[2017-11-24 05:32] LABS: BASOPHILS # (AUTO) 0.02 x10^3/uL (0-0.1); BASOPHILS % (AUTO) 0 % (0-1); EOSINOPHILS # (AUTO) 0.02 x10^3/uL (0-0.4); EOSINOPHILS % (AUTO) 0 % (1-7); LYMPHOCYTES # (AUTO) 1.27 x10^3/uL (1-3.4); LYMPHOCYTES % (AUTO) 26 % (22-44); MD NO; MEAN CORPUSCULAR HEMOGLOBIN 29.1 pg (27.0-34.8); MEAN CORPUSCULAR HGB CONC 33.7 g/dL (32.4-35.8); MEAN CORPUSCULAR VOLUME 86.1 fL (80-100); MEAN PLATELET VOLUME 7.1 fL (7.4-10.4); MONOCYTES # (AUTO) 0.31 x10^3/uL (0.2-0.8); MONOCYTES % (AUTO) 6 % (2-9); NEUTROPHILS # (AUTO) 3.28 x10^3/uL (1.8-6.8); NEUTROPHILS % (AUTO) 67 % (42-75); PLATELET COUNT 372 x10^3/uL (130-400); RED BLOOD COUNT 3.95 x10^6/uL (3.82-5.3); RED CELL DISTRIBUTION WIDTH 15.6 % (9.6-15.2)
[2017-11-24 05:43] LABS: CHLORIDE 109 mmol/L (98-107)
[2017-11-24 05:48] LABS: ALBUMIN 2.9 g/dL (3.4-5.0); ANION GAP 9 mmol/L (5-15); CALCIUM 7.1 mg/dL (8.5-10.1); CREATININE 0.86 mg/dL (0.55-1.02)
[2017-11-24] MEDS: LEVOTHYROXINE 150 MCG TABLET PO SCH (06:11)
[2017-11-24 07:02] VITALS: BP 120/82
[2017-11-24] MEDS: SODIUM CHLORIDE NASAL SPRAY 45ML BOTTLE NAS SCH ×2 (09:00→20:34)
[2017-11-24] MEDS: BISACODYL 10 MG SUPP PR SCH (09:00)
[2017-11-24] MEDS: FLUTICASONE/VILANTEROL 200-25MCG/INH INH SCH (09:12)
[2017-11-24] MEDS: AMLODIPINE 5 MG TABLET PO SCH (09:13)
[2017-11-24] MEDS: SENNA/DOCUSATE TABLET PO SCH (09:13)
[2017-11-24] MEDS: APIXABAN 5 MG TABLET PO SCH ×2 (09:13→20:14)
[2017-11-24] MEDS: FLUTICASONE NASAL SPRAY 16GM NAS SCH ×2 (09:13→20:14)
[2017-11-24] MEDS: PANTOPRAZOLE 40 MG IV IVPush SCH ×2 (09:16→20:23)
[2017-11-24] MEDS ORDERED: OMNIPAQUE 350 MG/ML, 100ML BOTTLE ONE (11:51)
[2017-11-24 12:35] VITALS: BP 111/74
[2017-11-24] MEDS: SIMVASTATIN 10 MG TABLET PO SCH (20:14)
[2017-11-24] MEDS: MINERA CRM, 60GM TP SCH (20:15)
[2017-11-24 20:55] VITALS: BP 114/78
[2017-11-24] MEDS ORDERED: OMEPRAZOLE 20 MG CAPSULE.DR PO SCH (21:00)
[2017-11-25 02:46] VITALS: BP 113/78
[2017-11-25] MEDS: morphine SULFATE 10 MG/ML, 1ML IVPush PRN ×4 (03:40→21:06)
[2017-11-25] MEDS: NS + 20MEQ KCL 1,000 ML IV SCH ×3 (04:55→23:17)
[2017-11-25 05:37] LABS: BASOPHILS # (AUTO) 0.02 x10^3/uL (0-0.1); BASOPHILS % (AUTO) 0 % (0-1); EOSINOPHILS # (AUTO) 0.05 x10^3/uL (0-0.4); EOSINOPHILS % (AUTO) 1 % (1-7); LYMPHOCYTES # (AUTO) 0.97 x10^3/uL (1-3.4); LYMPHOCYTES % (AUTO) 25 % (22-44); MD NO; MEAN CORPUSCULAR HEMOGLOBIN 28.9 pg (27.0-34.8); MEAN CORPUSCULAR HGB CONC 33.7 g/dL (32.4-35.8); MEAN CORPUSCULAR VOLUME 85.6 fL (80-100); MEAN PLATELET VOLUME 6.9 fL (7.4-10.4); MONOCYTES # (AUTO) 0.25 x10^3/uL (0.2-0.8); MONOCYTES % (AUTO) 6 % (2-9); NEUTROPHILS # (AUTO) 2.68 x10^3/uL (1.8-6.8); NEUTROPHILS % (AUTO) 68 % (42-75); PLATELET COUNT 349 x10^3/uL (130-400); RED BLOOD COUNT 3.63 x10^6/uL (3.82-5.3); RED CELL DISTRIBUTION WIDTH 15.7 % (9.6-15.2)
[2017-11-25 05:47] LABS: ALBUMIN 2.5 g/dL (3.4-5.0); ANION GAP 7 mmol/L (5-15); CHLORIDE 111 mmol/L (98-107)
[2017-11-25 05:52] LABS: ALANINE AMINOTRANSFERASE 12 U/L (12-78); ALKALINE PHOSPHATASE 49 U/L (45-117); BILIRUBIN,TOTAL 0.5 mg/dL (0.2-1.0); CREATININE 0.64 mg/dL (0.55-1.02); TOTAL PROTEIN 5.6 g/dL (6.4-8.2)
[2017-11-25] MEDS: LEVOTHYROXINE 150 MCG TABLET PO SCH (06:15)
[2017-11-25] MEDS: ALBUTEROL/IPRATROPIUM 2.5MG/0.5MG, 3 ML NPPB SCH ×2 (07:35→11:45)
[2017-11-25 08:12] VITALS: BP 143/90
[2017-11-25] MEDS: FLUTICASONE NASAL SPRAY 16GM NAS SCH ×2 (08:25→21:05)
[2017-11-25] MEDS: AMLODIPINE 5 MG TABLET PO SCH (08:25)
[2017-11-25] MEDS: APIXABAN 5 MG TABLET PO SCH ×2 (08:25→14:20)
[2017-11-25] MEDS: SENNA/DOCUSATE TABLET PO SCH (08:25)
[2017-11-25] MEDS: FLUTICASONE/VILANTEROL 200-25MCG/INH INH SCH (08:25)
[2017-11-25] MEDS: MINERA CRM, 60GM TP SCH ×2 (08:27→21:06)
[2017-11-25] MEDS: SODIUM CHLORIDE NASAL SPRAY 45ML BOTTLE NAS SCH ×2 (08:29→21:05)
[2017-11-25] MEDS: BISACODYL 10 MG SUPP PR SCH (08:29)
[2017-11-25] MEDS ORDERED: OMNIPAQUE 350 MG/ML, 100ML BOTTLE ONE (11:38)
[2017-11-25 12:32] VITALS: BP 168/82
[2017-11-25 12:35] VITALS: BP 111/76
[2017-11-25] MEDS ORDERED: CALCIUM CARBONATE 500 MG TABLET PO PRN (14:00)
[2017-11-25 19:59] VITALS: BP 129/87
[2017-11-25] MEDS: IPRATROPIUM 0.5 MG/2.5 ML INHA NPPB SCH (21:00)
[2017-11-25] MEDS: SIMVASTATIN 10 MG TABLET PO SCH (21:05)
[2017-11-25] MEDS ORDERED: DIPHENHYDRAMINE 25 MG CAPSULE PO PRN (22:00)
[2017-11-26 01:49] VITALS: BP 138/90
[2017-11-26] MEDS: morphine SULFATE 10 MG/ML, 1ML IVPush PRN ×4 (04:11→21:26)
[2017-11-26] MEDS: LEVOTHYROXINE 150 MCG TABLET PO SCH (04:26)
[2017-11-26 06:04] LABS: BASOPHILS # (AUTO) 0.01 x10^3/uL (0-0.1); BASOPHILS % (AUTO) 0 % (0-1); EOSINOPHILS # (AUTO) 0.09 x10^3/uL (0-0.4); EOSINOPHILS % (AUTO) 2 % (1-7); LYMPHOCYTES # (AUTO) 1.23 x10^3/uL (1-3.4); LYMPHOCYTES % (AUTO) 31 % (22-44); MD NO; MEAN CORPUSCULAR HEMOGLOBIN 28.5 pg (27.0-34.8); MEAN CORPUSCULAR HGB CONC 33.4 g/dL (32.4-35.8); MEAN CORPUSCULAR VOLUME 85.4 fL (80-100); MEAN PLATELET VOLUME 6.8 fL (7.4-10.4); MONOCYTES # (AUTO) 0.36 x10^3/uL (0.2-0.8); MONOCYTES % (AUTO) 9 % (2-9); NEUTROPHILS # (AUTO) 2.34 x10^3/uL (1.8-6.8); NEUTROPHILS % (AUTO) 58 % (42-75); PLATELET COUNT 379 x10^3/uL (130-400); RED BLOOD COUNT 4.14 x10^6/uL (3.82-5.3); RED CELL DISTRIBUTION WIDTH 16.2 % (9.6-15.2)
[2017-11-26 06:13] LABS: ALBUMIN 2.6 g/dL (3.4-5.0); ANION GAP 8 mmol/L (5-15); CALCIUM 7.3 mg/dL (8.5-10.1); CHLORIDE 110 mmol/L (98-107); CREATININE 0.61 mg/dL (0.55-1.02)
[2017-11-26 06:51] VITALS: BP 118/76
[2017-11-26] MEDS: NS + 20MEQ KCL 1,000 ML IV SCH (07:03)
[2017-11-26] MEDS: IPRATROPIUM 0.5 MG/2.5 ML INHA NPPB SCH ×2 (07:20→21:07)
[2017-11-26] MEDS: SENNA/DOCUSATE TABLET PO SCH (09:00)
[2017-11-26] MEDS: SODIUM CHLORIDE NASAL SPRAY 45ML BOTTLE NAS SCH ×2 (09:00→20:20)
[2017-11-26] MEDS: BISACODYL 10 MG SUPP PR SCH (09:00)
[2017-11-26] MEDS: MINERA CRM, 60GM TP SCH ×2 (09:28→20:20)
[2017-11-26] MEDS: FLUTICASONE NASAL SPRAY 16GM NAS SCH ×2 (09:29→20:20)
[2017-11-26] MEDS: FLUTICASONE/VILANTEROL 200-25MCG/INH INH SCH (09:30)
[2017-11-26] MEDS: AMLODIPINE 5 MG TABLET PO SCH (09:30)
[2017-11-26] MEDS ORDERED: MAGNESIUM SULFATE PMX 2GM/50ML 50 ML IV ONE (12:30)
[2017-11-26 13:18] VITALS: BP 108/74
[2017-11-26] MEDS ORDERED: LIDOCAINE-MPF 2%, 2ML ONE (14:06)
[2017-11-26] MEDS: CALCIUM CARBONATE 500 MG TAB.CHEW PO PRN (18:17)
[2017-11-26] MEDS: ACETAMINOPHEN 325 MG TABLET PO PRN (20:20)
[2017-11-26] MEDS: SIMVASTATIN 10 MG TABLET PO SCH (20:20)
[2017-11-26 21:16] VITALS: BP 108/75
[2017-11-26] MEDS: APIXABAN 5 MG TABLET PO SCH (22:19)
[2017-11-27 02:10] VITALS: BP 123/67
[2017-11-27] MEDS: LEVOTHYROXINE 150 MCG TABLET PO SCH (06:10)
[2017-11-27 06:13] LABS: ALBUMIN 2.6 g/dL (3.4-5.0); CREATININE 0.71 mg/dL (0.55-1.02)
[2017-11-27 06:18] LABS: ANION GAP 10 mmol/L (5-15); CHLORIDE 106 mmol/L (98-107)
[2017-11-27 06:37] VITALS: BP 105/72
[2017-11-27] MEDS: IPRATROPIUM 0.5 MG/2.5 ML INHA NPPB SCH ×2 (07:25→21:07)
[2017-11-27 08:56] LABS: HCT (SEDRATE) 34.3 % (34.6-47.8)
[2017-11-27 09:00] VITALS: BP 100/68
[2017-11-27] MEDS: BISACODYL 10 MG SUPP PR SCH (09:00)
[2017-11-27] MEDS: SODIUM CHLORIDE NASAL SPRAY 45ML BOTTLE NAS SCH ×2 (09:00→20:45)
[2017-11-27] MEDS: FLUTICASONE/VILANTEROL 200-25MCG/INH INH SCH (09:10)
[2017-11-27] MEDS: APIXABAN 5 MG TABLET PO SCH ×2 (09:11→20:45)
[2017-11-27] MEDS: FLUTICASONE NASAL SPRAY 16GM NAS SCH ×2 (09:11→20:45)
[2017-11-27] MEDS: SENNA/DOCUSATE TABLET PO SCH (09:12)
[2017-11-27] MEDS: AMLODIPINE 5 MG TABLET PO SCH (09:12)
[2017-11-27] MEDS: MINERA CRM, 60GM TP SCH ×2 (09:13→20:46)
[2017-11-27] MEDS: CALCIUM CARBONATE 500 MG TAB.CHEW PO PRN ×2 (09:17→21:29)
[2017-11-27 12:21] VITALS: BP 100/69
[2017-11-27] MEDS ORDERED: methylPREDNISolone SOD SUCC 125 MG/2 ML IVPush SCH (14:00)
[2017-11-27] MEDS: ACETAMINOPHEN 325 MG TABLET PO PRN (14:24)
[2017-11-27] MEDS: morphine SULFATE 10 MG/ML, 1ML IVPush PRN (17:02)
[2017-11-27] MEDS: SIMVASTATIN 10 MG TABLET PO SCH (20:45)
[2017-11-27 20:54] VITALS: BP 117/79
[2017-11-28 03:19] VITALS: BP 127/62
[2017-11-28 05:26] LABS: BASOPHILS % (AUTO) 0 % (0-1); EOSINOPHILS % (AUTO) 0 % (1-7); LYMPHOCYTES # (AUTO) 0.79 x10^3/uL (1-3.4); LYMPHOCYTES % (AUTO) 17 % (22-44); MD NO; MEAN CORPUSCULAR HEMOGLOBIN 28.7 pg (27.0-34.8); MEAN CORPUSCULAR HGB CONC 33.1 g/dL (32.4-35.8); MEAN CORPUSCULAR VOLUME 86.6 fL (80-100); MEAN PLATELET VOLUME 6.9 fL (7.4-10.4); MONOCYTES % (AUTO) 2 % (2-9); NEUTROPHILS # (AUTO) 3.88 x10^3/uL (1.8-6.8); NEUTROPHILS % (AUTO) 81 % (42-75); PLATELET COUNT 468 x10^3/uL (130-400); RED BLOOD COUNT 4.19 x10^6/uL (3.82-5.3); RED CELL DISTRIBUTION WIDTH 15.9 % (9.6-15.2)
[2017-11-28 05:44] LABS: ALBUMIN 2.8 g/dL (3.4-5.0); CHLORIDE 105 mmol/L (98-107)
[2017-11-28 05:47] LABS: ANION GAP 8 mmol/L (5-15); CALCIUM 8.3 mg/dL (8.5-10.1); CREATININE 0.73 mg/dL (0.55-1.02)
[2017-11-28] MEDS: LEVOTHYROXINE 150 MCG TABLET PO SCH (06:15)
[2017-11-28 08:00] VITALS: BP 152/92
[2017-11-28] MEDS: methylPREDNISolone SOD SUCC 125 MG/2 ML IV SCH ×3 (08:39→23:12)
[2017-11-28] MEDS: APIXABAN 5 MG TABLET PO SCH ×2 (08:39→20:23)
[2017-11-28] MEDS: SENNA/DOCUSATE TABLET PO SCH (08:39)
[2017-11-28] MEDS: AMLODIPINE 5 MG TABLET PO SCH (08:39)
[2017-11-28] MEDS: OMEPRAZOLE 20 MG CAPSULE.DR PO SCH ×2 (08:39→20:23)
[2017-11-28] MEDS: FLUTICASONE NASAL SPRAY 16GM NAS SCH ×2 (08:39→20:24)
[2017-11-28] MEDS: MINERA CRM, 60GM TP SCH ×2 (08:40→20:24)
[2017-11-28] MEDS: SODIUM CHLORIDE NASAL SPRAY 45ML BOTTLE NAS SCH ×3 (08:40→20:24)
[2017-11-28] MEDS: FLUTICASONE/VILANTEROL 200-25MCG/INH INH SCH (08:40)
[2017-11-28] MEDS: BISACODYL 10 MG SUPP PR SCH (08:40)
[2017-11-28 09:09] LABS: MICROSCOPIC NOT IND
[2017-11-28 09:10] LABS: CULTURE INDICATED? NO
[2017-11-28] MEDS: IPRATROPIUM 0.5 MG/2.5 ML INHA NPPB SCH (11:12)
[2017-11-28] MEDS: CALCIUM CARBONATE 500 MG TAB.CHEW PO PRN ×2 (11:24→14:46)
[2017-11-28 12:54] VITALS: BP 138/86
[2017-11-28] MEDS ORDERED: IPRATROPIUM 0.5 MG/2.5 ML INHA NPPB SCH (15:00)
[2017-11-28] MEDS: ACETAMINOPHEN 325 MG TABLET PO PRN ×2 (15:52→20:27)
[2017-11-28] MEDS ORDERED: MAALOX/HYOSCYAMINE/LIDOCAINE 45 ML BTL PO ONE (16:00)
[2017-11-28] MEDS: ALBUTEROL/IPRATROPIUM 2.5MG/0.5MG, 3 ML NPPB SCH ×2 (16:00→19:48)
[2017-11-28] MEDS: SIMVASTATIN 10 MG TABLET PO SCH (20:23)
[2017-11-28 20:45] VITALS: BP 138/62
[2017-11-28] MEDS: morphine SULFATE 10 MG/ML, 1ML IVPush PRN (22:03)
[2017-11-29] MEDS: ACETAMINOPHEN 325 MG TABLET PO PRN (00:51)
[2017-11-29] MEDS: ALBUTEROL/IPRATROPIUM 2.5MG/0.5MG, 3 ML NPPB SCH ×4 (03:13→13:55)
[2017-11-29 03:20] VITALS: BP 137/88
[2017-11-29 05:26] LABS: ALBUMIN 2.9 g/dL (3.4-5.0); ANION GAP 9 mmol/L (5-15); CALCIUM 8.3 mg/dL (8.5-10.1); CHLORIDE 106 mmol/L (98-107)
[2017-11-29 05:30] LABS: ALANINE AMINOTRANSFERASE 14 U/L (12-78); ALKALINE PHOSPHATASE 57 U/L (45-117); BILIRUBIN,TOTAL 0.1 mg/dL (0.2-1.0); CREATININE 0.73 mg/dL (0.55-1.02); TOTAL PROTEIN 6.6 g/dL (6.4-8.2)
[2017-11-29 05:36] LABS: BASOPHILS % (AUTO) 0 % (0-1); EOSINOPHILS % (AUTO) 0 % (1-7); LYMPHOCYTES # (AUTO) 0.75 x10^3/uL (1-3.4); LYMPHOCYTES % (AUTO) 7 % (22-44); MD NO; MEAN CORPUSCULAR HEMOGLOBIN 29.1 pg (27.0-34.8); MEAN CORPUSCULAR HGB CONC 33.9 g/dL (32.4-35.8); MEAN PLATELET VOLUME 6.9 fL (7.4-10.4); MONOCYTES # (AUTO) 0.17 x10^3/uL (0.2-0.8); MONOCYTES % (AUTO) 2 % (2-9); NEUTROPHILS # (AUTO) 9.89 x10^3/uL (1.8-6.8); NEUTROPHILS % (AUTO) 92 % (42-75); PLATELET COUNT 460 x10^3/uL (130-400); RED BLOOD COUNT 3.73 x10^6/uL (3.82-5.3); RED CELL DISTRIBUTION WIDTH 16.4 % (9.6-15.2)
[2017-11-29] MEDS: LEVOTHYROXINE 150 MCG TABLET PO SCH (05:55)
[2017-11-29] MEDS: OMEPRAZOLE 20 MG CAPSULE.DR PO SCH (08:12)
[2017-11-29] MEDS: AMLODIPINE 5 MG TABLET PO SCH (08:12)
[2017-11-29] MEDS: methylPREDNISolone SOD SUCC 125 MG/2 ML IV SCH (08:12)
[2017-11-29] MEDS: FLUTICASONE NASAL SPRAY 16GM NAS SCH (08:12)
[2017-11-29] MEDS: FLUTICASONE/VILANTEROL 200-25MCG/INH INH SCH (08:12)
[2017-11-29] MEDS: SENNA/DOCUSATE TABLET PO SCH (08:12)
[2017-11-29] MEDS: BISACODYL 10 MG SUPP PR SCH (08:13)
[2017-11-29] MEDS: APIXABAN 5 MG TABLET PO SCH (08:13)
[2017-11-29] MEDS: SODIUM CHLORIDE NASAL SPRAY 45ML BOTTLE NAS SCH (08:13)
[2017-11-29] MEDS: MINERA CRM, 60GM TP SCH (08:14)
[2017-11-29 08:24] VITALS: BP 145/88
[2017-11-29] MEDS ORDERED: PRED20TA PO (12:12)
[2017-11-29] MEDS ORDERED: IPRA3AMP30 NPPB (12:12)
== END 2017-11-29 14:45 | disposition home or self-care (01) | DRG 682 ==
LOC: ED 14:55 → EDIP 15:59 → 4NOR 17:21 → 4EST 11-25 11:45
PROVIDERS: ADMIT Internal Medicine; ATTEND Internal Medicine
PROC: 5A09557 Assistance with Respiratory Ventilation, Greater than 96 Consecutive Hours, Continuous Positive Airway Pressure (ICD-10-PCS; 2017-11-21)
PROC: BW40ZZZ Ultrasonography of Abdomen (ICD-10-PCS; principal; 2017-11-26)
DX: N17.0 Acute kidney failure with tubular necrosis (principal); J96.01 Acute respiratory failure with hypoxia; K56.7 Ileus, unspecified; D68.69 Other thrombophilia; E87.1 Hypo-osmolality and hyponatremia; E44.0 Moderate protein-calorie malnutrition; J98.11 Atelectasis; E86.0 Dehydration; E78.00 Pure hypercholesterolemia, unspecified; E78.5 Hyperlipidemia, unspecified; E83.42 Hypomagnesemia; E87.6 Hypokalemia; G47.30 Sleep apnea, unspecified; I10 Essential (primary) hypertension; I48.91 Unspecified atrial fibrillation; K21.9 Gastro-esophageal reflux disease without esophagitis; M19.90 Unspecified osteoarthritis, unspecified site; R59.0 Localized enlarged lymph nodes; R70.0 Elevated erythrocyte sedimentation rate; R79.89 Other specified abnormal findings of blood chemistry; M32.9 Systemic lupus erythematosus, unspecified; T78.3XXA Angioneurotic edema, initial encounter; K59.00 Constipation, unspecified; J44.9 Chronic obstructive pulmonary disease, unspecified; E89.0 Postprocedural hypothyroidism; Z95.0 Presence of cardiac pacemaker; Z80.3 Family history of malignant neoplasm of breast; Z68.38 Body mass index [BMI] 38.0-38.9, adult; Z99.81 Dependence on supplemental oxygen; Z79.01 Long term (current) use of anticoagulants; Z86.73 Personal history of transient ischemic attack (TIA), and cerebral infarction without residual deficits; Z82.5 Family history of asthma and other chronic lower respiratory diseases; Z82.49 Family history of ischemic heart disease and other diseases of the circulatory system
CPT/HCPCS: 36415; 70450; 71045; 71275; 74018; 74021; 74177; 76700; 76942; 78582; 80048; 80053; 81001; 81003; 82040; 83605; 83690; 83735; 84100; 84439; 84443; 85025; 85379; 85651; 86140; 86160; 87040; 87324; 93005; 93308; 94640; 94660; 96374; 96375; 96376; J2405; J3480; J3490; J7613; J7620; J7644; Q0162; Q9967; A9540; A9558; C9113; C9898; J2270; J2765; J2930; J3475; J7030; J7040; J7512; Q0163; S0028

== ENCOUNTER 2018-01-12 15:39 | Emergency (ER) | payer MEDICARE, MEDICAID ==
[~2018-01-12] VITALS: Ht 160 cm; Wt 100.9 kg
[~2018-01-12 15:39] MED LIST changes: -AMLO10TA2 PO; +AMLO10TA6 PO; +IPRA3AMP30 NPPB; +METH25VI22 IM; +OMEP20TA62 PO
[2018-01-12 15:45] VITALS: BP 128/90
[2018-01-12 16:12] LABS: BASOPHILS # (AUTO) 0.03 x10^3/uL (0-0.1); BASOPHILS % (AUTO) 0 % (0-1); EOSINOPHILS # (AUTO) 0.12 x10^3/uL (0-0.4); EOSINOPHILS % (AUTO) 2 % (1-7); LYMPHOCYTES # (AUTO) 2.02 x10^3/uL (1-3.4); LYMPHOCYTES % (AUTO) 26 % (22-44); MD NO; MEAN CORPUSCULAR HEMOGLOBIN 29.2 pg (27.0-34.8); MEAN CORPUSCULAR HGB CONC 33.5 g/dL (32.4-35.8); MEAN PLATELET VOLUME 7.6 fL (7.4-10.4); MONOCYTES # (AUTO) 0.36 x10^3/uL (0.2-0.8); MONOCYTES % (AUTO) 5 % (2-9); NEUTROPHILS # (AUTO) 5.38 x10^3/uL (1.8-6.8); NEUTROPHILS % (AUTO) 68 % (42-75); PLATELET COUNT 435 x10^3/uL (130-400)
[2018-01-12 16:22] LABS: ALANINE AMINOTRANSFERASE 19 U/L (12-78); ALBUMIN 3.6 g/dL (3.4-5.0); ANION GAP 11 mmol/L (5-15); CALCIUM 8.8 mg/dL (8.5-10.1); CHLORIDE 104 mmol/L (98-107); CREATININE 0.97 mg/dL (0.55-1.02)
[2018-01-12 16:24] LABS: ALKALINE PHOSPHATASE 101 U/L (45-117); BILIRUBIN,TOTAL 0.4 mg/dL (0.2-1.0); TOTAL PROTEIN 7.4 g/dL (6.4-8.2)
[2018-01-12 16:45] LABS: INTERNATIONAL NORMALIZED RATIO 0.93 (0.93-1.1); PROTHROMBIN TIME 9.7 Seconds (9.6-11.5)
[2018-01-16] MEDS ORDERED: OMAL150V IM (10:36)
[2018-01-16] MEDS ORDERED: HYDR-3237 PO (10:54)
== END 2018-01-12 16:52 | disposition home or self-care (01) ==
LOC: ED 16:46
DX: L03.113 Cellulitis of right upper limb (principal); M32.9 Systemic lupus erythematosus, unspecified; E78.00 Pure hypercholesterolemia, unspecified; J44.9 Chronic obstructive pulmonary disease, unspecified; I10 Essential (primary) hypertension; Z90.89 Acquired absence of other organs; Z90.710 Acquired absence of both cervix and uterus; I48.91 Unspecified atrial fibrillation; M19.90 Unspecified osteoarthritis, unspecified site; Z86.73 Personal history of transient ischemic attack (TIA), and cerebral infarction without residual deficits; Z88.8 Allergy status to other drugs, medicaments and biological substances
CPT/HCPCS: 29260; 36415; 80053; 85025; 85610; 85730; 99285

== ENCOUNTER → 2018-01-16 | Outpatient (CLI) | payer MEDICARE, MEDICAID ==
[~2018-01-16] MED LIST changes: +HYDR-3237 PO; +OMAL150V IM
== END | disposition home or self-care (01) ==
LOC: STAR 09:55
PROVIDERS: ATTEND Internal Medicine Critical Care Medicine
DX: Z01.818 Encounter for other preprocedural examination (principal); D86.9 Sarcoidosis, unspecified; I50.9 Heart failure, unspecified; Z88.8 Allergy status to other drugs, medicaments and biological substances; Z86.73 Personal history of transient ischemic attack (TIA), and cerebral infarction without residual deficits; Z87.891 Personal history of nicotine dependence
CPT/HCPCS: 93005

== ENCOUNTER 2018-04-28 11:38 | Emergency (ER) | payer MEDICARE, MEDICAID ==
[~2018-04-28] VITALS: Ht 160 cm; Wt 97.0 kg
[2018-04-28] MEDS ORDERED: MAALOX/HYOSCYAMINE/LIDOCAINE 45 ML BTL ONE (12:36)
--- NOTE | 2018-04-28 12:45 | NUR ---
PT TO ED WITH REDNESS AND PAIN IN BOTH EYES. STARTED YESTERDAY WITH RIGHT EYE, BILATERAL THIS MORNING. TENDERNESS AND PAIN WITH PALPATION. EYE PAIN CAUSING MAN. PT ALSO STATES CP RADIATING TO THROAT STARTING WHEN SHE GOT TO THE ED. MD BALBUENA FOR ASSESSMENT. GI COCKTAIL ORDERED AND ADMINISTERED WITH COMPLETE RESOLUTION OF CP. CONNECTED TO ALL MONITORS. HTN, ALL OTHER VSS. AWAITING LAB RESULTS AT THIS TIME.
[2018-04-28 12:55] LABS: BASOPHILS # (AUTO) 0.08 x10^3/uL (0-0.1); BASOPHILS % (AUTO) 1 % (0-1); EOSINOPHILS # (AUTO) 0.02 x10^3/uL (0-0.4); EOSINOPHILS % (AUTO) 0 % (1-7); LYMPHOCYTES # (AUTO) 2.45 x10^3/uL (1-3.4); LYMPHOCYTES % (AUTO) 20 % (22-44); MD NO; MEAN CORPUSCULAR HEMOGLOBIN 28.2 pg (27.0-34.8); MEAN CORPUSCULAR HGB CONC 33.7 g/dL (32.4-35.8); MEAN CORPUSCULAR VOLUME 83.8 fL (80-100); MEAN PLATELET VOLUME 6.8 fL (7.4-10.4); MONOCYTES # (AUTO) 0.31 x10^3/uL (0.2-0.8); MONOCYTES % (AUTO) 3 % (2-9); NEUTROPHILS # (AUTO) 9.15 x10^3/uL (1.8-6.8); NEUTROPHILS % (AUTO) 76 % (42-75); PLATELET COUNT 509 x10^3/uL (130-400); RED BLOOD COUNT 4.87 x10^6/uL (3.82-5.3); RED CELL DISTRIBUTION WIDTH 16.5 % (9.6-15.2)
[2018-04-28] MEDS ORDERED: MAALOX/HYOSCYAMINE/LIDOCAINE 45 ML BTL PO ONE (13:00)
[2018-04-28 13:06] LABS: INTERNATIONAL NORMALIZED RATIO 0.99 (0.93-1.1); PROTHROMBIN TIME 10.5 Seconds (9.6-11.5)
[2018-04-28 13:07] LABS: ALANINE AMINOTRANSFERASE 19 U/L (12-78); ALBUMIN 3.7 g/dL (3.4-5.0); ANION GAP 10 mmol/L (5-15); CHLORIDE 105 mmol/L (98-107)
[2018-04-28 13:12] LABS: ALKALINE PHOSPHATASE 105 U/L (45-117); BILIRUBIN,TOTAL 0.3 mg/dL (0.2-1.0); CREATININE 0.96 mg/dL (0.55-1.02); TOTAL PROTEIN 8.1 g/dL (6.4-8.2); TROPONIN I < 0.015 ng/mL (0.000-0.045)
--- NOTE | 2018-04-28 13:13 | NUR ---
all results back at this time. chart up for recheck.
[2018-04-28 13:59] VITALS: BP 152/103
[2018-04-28] MEDS ORDERED: IBUPROFEN 200 MG TABLET PO ONE (14:00)
--- NOTE | 2018-04-28 14:00 | NUR ---
Patient/Caregiver given discharge instructions and they have confirmed that they understand the instructions. Patient ambulatory with steady gait. PT REFUSED MOTRIN PRIOR TO DC. PT LEFT WITH ALL PERSONAL BELONGINGS.
== END 2018-04-28 14:02 | disposition home or self-care (01) ==
LOC: ED 12:53
DX: B30.9 Viral conjunctivitis, unspecified (principal); K21.9 Gastro-esophageal reflux disease without esophagitis; J44.9 Chronic obstructive pulmonary disease, unspecified; J45.909 Unspecified asthma, uncomplicated; M19.90 Unspecified osteoarthritis, unspecified site; E78.5 Hyperlipidemia, unspecified; E78.00 Pure hypercholesterolemia, unspecified; I10 Essential (primary) hypertension; E07.9 Disorder of thyroid, unspecified; I48.91 Unspecified atrial fibrillation; Z86.73 Personal history of transient ischemic attack (TIA), and cerebral infarction without residual deficits; Z90.49 Acquired absence of other specified parts of digestive tract; Z90.710 Acquired absence of both cervix and uterus; Z88.8 Allergy status to other drugs, medicaments and biological substances
CPT/HCPCS: 36415; 80053; 83690; 84484; 85025; 85610; 85730; 93005; 99284

== ENCOUNTER 2018-05-30 18:13 | Inpatient (IN) | payer MEDICARE, MEDICAID ==
[~2018-05-30] VITALS: Ht 160 cm; Wt 109.0 kg
[2018-05-30] MEDS: OMEPRAZOLE 20 MG CAPSULE.DR PO SCH (16:30)
[~2018-05-30 18:13] MED LIST changes: -AMLO10TA6 PO; +AMLO10TA8 PO
[2018-05-30] MEDS ORDERED: MORPHINE SULFATE 4 MG/ML, 1ML IVPush PRN (19:00)
[2018-05-30] MEDS ORDERED: ONDANSETRON 2MG/ML, 2ML IVPush ONE ×2 (19:00→22:00)
--- NOTE | 2018-05-30 19:26 | NUR ---
IV PLACED, LABS DRAWN WITH START. PCXR COMPLETED AT BS. PT UPDATED ON POC. PT UP/AMB TO BR TO PROVIDE UA. CALL LIGHT WITHIN REACH.
[2018-05-30 19:30] LABS: BASOPHILS # (AUTO) 0.04 x10^3/uL (0-0.1); BASOPHILS % (AUTO) 0 % (0-1); EOSINOPHILS % (AUTO) 1 % (1-7); LYMPHOCYTES # (AUTO) 2.01 x10^3/uL (1-3.4); LYMPHOCYTES % (AUTO) 23 % (22-44); MD NO; MEAN CORPUSCULAR HEMOGLOBIN 28.3 pg (27.0-34.8); MEAN CORPUSCULAR HGB CONC 33.4 g/dL (32.4-35.8); MEAN CORPUSCULAR VOLUME 84.6 fL (80-100); MEAN PLATELET VOLUME 6.6 fL (7.4-10.4); MONOCYTES # (AUTO) 0.42 x10^3/uL (0.2-0.8); MONOCYTES % (AUTO) 5 % (2-9); NEUTROPHILS # (AUTO) 6.37 x10^3/uL (1.8-6.8); NEUTROPHILS % (AUTO) 71 % (42-75); PLATELET COUNT 482 x10^3/uL (130-400); RED BLOOD COUNT 4.06 x10^6/uL (3.82-5.3); RED CELL DISTRIBUTION WIDTH 19.7 % (9.6-15.2)
[2018-05-30] MEDS ORDERED: ONDANSETRON 2MG/ML, 2ML ONE ×2 (19:34→22:13)
[2018-05-30] MEDS ORDERED: MORPHINE SULFATE 4 MG/ML, 1ML ONE (19:34)
--- NOTE | 2018-05-30 19:38 | NUR ---
PT MEDICATED PER ERP ORDER FOR 810 CP. VSS ON MONITOR/UPDATED IN COMPUTER. CALL LIGHT WITHIN REACH.
[2018-05-30 19:39] LABS: INTERNATIONAL NORMALIZED RATIO 0.94 (0.93-1.1)
[2018-05-30 19:43] LABS: ALBUMIN 3.2 g/dL (3.4-5.0); ANION GAP 5 mmol/L (5-15); CALCIUM 7.8 mg/dL (8.5-10.1); CHLORIDE 107 mmol/L (98-107)
[2018-05-30 19:46] LABS: MICROSCOPIC NOT IND
[2018-05-30 19:47] LABS: CULTURE INDICATED? NO
[2018-05-30 19:48] LABS: ALANINE AMINOTRANSFERASE 23 U/L (12-78); ALKALINE PHOSPHATASE 118 U/L (45-117); BILIRUBIN,TOTAL 0.2 mg/dL (0.2-1.0); CREATININE 0.91 mg/dL (0.55-1.02); TOTAL PROTEIN 6.9 g/dL (6.4-8.2)
--- NOTE | 2018-05-30 20:25 | NUR ---
ADD ON ORDER FOR LAB. AWAITING RESULTS. PT JOKING AND LAUGHING WITH FAMILY, NAD.
[2018-05-30 20:51] LABS: TROPONIN I < 0.015 ng/mL (0.000-0.045)
--- NOTE | 2018-05-30 20:59 | NUR ---
ALL RESULTS BACK, PT FOR RECHECK.
[2018-05-30] MEDS ORDERED: MAALOX/HYOSCYAMINE/LIDOCAINE 45 ML BTL ONE (21:18)
[2018-05-30] MEDS ORDERED: MAALOX/HYOSCYAMINE/LIDOCAINE 45 ML BTL PO ONE (21:30)
--- NOTE | 2018-05-30 21:35 | NUR ---
TOLERATE GI COCKTAIL WELL, WILL GIVE CHANCE FOR GI COCKTAIL TO WORK THEN TRY PO FLUIDS, VERY PLE[employer]ADY
--- NOTE | 2018-05-30 21:52 | NUR ---
PT REPORTS THAT ABD MORE SWOLLEN AND PAINFUL.
[2018-05-30] MEDS ORDERED: HYDROmorphone 2 MG/ML, 1ML IVPush PRN (22:00)
[2018-05-30] MEDS ORDERED: SODIUM CHLORIDE 0.9% 1,000ML IVBOLUS ONE (22:00)
[2018-05-30] MEDS ORDERED: HYDROmorphone 1 MG/ML, 1ML ONE (22:14)
--- NOTE | 2018-05-30 22:24 | NUR ---
IV RESTART OTHER LINE INFILTRATED, TOLERATE RELATIVELY WELL, FLUIDS INFUSING AND MEDICATED PER ORDER, PLACED ON 2L O2 AFTER DILAUDID, PT NOTES THAT SHE HAS REC BEFORE AND DID FINE WITH. GOING TO US, GIVEN .5 NOW AND WILL GIVE OTHER .5 WHEN RETURNS.
--- NOTE | 2018-05-30 22:59 | NUR ---
HOSPITALIST AT BEDSIDE AT THIS TIME, PT REPORTS SOME RELIEF WITH EARLIER PAIN MEDS, GIVEN OTHER 0.5 DILAUDID. PT ABD REAMINS SWOLLEN AND PT CONTINUES TO HAVE SHARP PAINS PERIODICALLY REPORT TO MECHE HERR
--- NOTE | 2018-05-30 23:14 | NUR ---
REPORT OF PT FROM CARMENZA BRUCE AND ASSUMING CARE OF PT.
[2018-05-30] MEDS ORDERED: OMNIPAQUE 350 MG/ML, 100ML BOTTLE ONE (23:49)
--- NOTE | 2018-05-30 23:55 | NUR ---
REPORT OF PT TO CARMENZA JUNG. ALL QUESTIONS ANSWERED. TECH PAGED FOR TRANSPORT.
[2018-05-31] MEDS ORDERED: LIDODERM 5% PATCH TD PRN
[2018-05-31] MEDS ORDERED: ACETAMINOPHEN 325 MG TABLET PO PRN
[2018-05-31] MEDS ORDERED: hydrALAzine 20 MG/ML, 1ML IVPush PRN
[2018-05-31] MEDS ORDERED: ONDANSETRON 2MG/ML, 2ML IVPush PRN
[2018-05-31] MEDS ORDERED: HYDROcodone/APAP 5/325 TABLET PO PRN
[2018-05-31 00:35] VITALS: BP 106/69
[2018-05-31] MEDS: SIMVASTATIN 10 MG TABLET PO SCH ×2 (01:42→19:33)
[2018-05-31 01:54] LABS: TROPONIN I < 0.015 ng/mL (0.000-0.045)
[2018-05-31] MEDS ORDERED: ALBUTEROL SULFATE 2.5 MG/3 ML NPPB SCH (02:00)
[2018-05-31] MEDS: HYDROmorphone 2 MG/ML, 1ML IVPush PRN ×5 (02:35→23:42)
[2018-05-31] MEDS: [UNRECOGNIZED DRUG - OTHER] MC SCH ×2 (03:00→11:00)
[2018-05-31 05:54] LABS: BASOPHILS # (AUTO) 0.06 x10^3/uL (0-0.1); BASOPHILS % (AUTO) 1 % (0-1); EOSINOPHILS # (AUTO) 0.17 x10^3/uL (0-0.4); EOSINOPHILS % (AUTO) 2 % (1-7); LYMPHOCYTES # (AUTO) 2.88 x10^3/uL (1-3.4); LYMPHOCYTES % (AUTO) 35 % (22-44); MD NO; MEAN CORPUSCULAR HEMOGLOBIN 28.6 pg (27.0-34.8); MEAN CORPUSCULAR HGB CONC 33.6 g/dL (32.4-35.8); MEAN CORPUSCULAR VOLUME 85.2 fL (80-100); MEAN PLATELET VOLUME 6.6 fL (7.4-10.4); MONOCYTES # (AUTO) 0.54 x10^3/uL (0.2-0.8); MONOCYTES % (AUTO) 7 % (2-9); NEUTROPHILS # (AUTO) 4.61 x10^3/uL (1.8-6.8); NEUTROPHILS % (AUTO) 56 % (42-75); PLATELET COUNT 394 x10^3/uL (130-400); RED BLOOD COUNT 3.67 x10^6/uL (3.82-5.3)
[2018-05-31] MEDS ORDERED: LEVOTHYROXINE 150 MCG TABLET PO SCH (06:00)
[2018-05-31 06:03] LABS: ANION GAP 4 mmol/L (5-15); CALCIUM 7.3 mg/dL (8.5-10.1); CHLORIDE 107 mmol/L (98-107); CREATININE 0.78 mg/dL (0.55-1.02)
[2018-05-31 06:07] LABS: TROPONIN I < 0.015 ng/mL (0.000-0.045)
[2018-05-31] MEDS: ALBUTEROL/IPRATROPIUM 2.5MG/0.5MG, 3 ML NPPB SCH ×4 (07:00→19:15)
[2018-05-31] MEDS ORDERED: IPRATROPIUM 0.5 MG/2.5 ML INHA NPPB SCH (07:00)
[2018-05-31] MEDS: BUDESONIDE 0.5 MG/2 ML INHA INH SCH ×2 (07:05→21:00)
[2018-05-31 07:25] VITALS: BP 100/65
[2018-05-31] MEDS ORDERED: PANTOPRAZOLE 40 MG IV IVPush SCH (07:30)
[2018-05-31] MEDS: OMEPRAZOLE 20 MG CAPSULE.DR PO SCH ×2 (07:30→17:43)
[2018-05-31] MEDS: OXYBUTYNIN CHLORIDE 5 MG TABLET PO SCH ×2 (08:32→19:33)
[2018-05-31] MEDS: APIXABAN 5 MG TABLET PO SCH ×2 (08:32→19:33)
[2018-05-31] MEDS: AMLODIPINE 5 MG TABLET PO SCH (08:33)
[2018-05-31] MEDS: TRIAMTERENE-HCTZ 37.5/25 MG TABLET PO SCH (08:33)
[2018-05-31] MEDS ORDERED: FLUTICASONE/VILANTEROL 200-25MCG/INH INH SCH (09:00)
[2018-05-31] MEDS ORDERED: TRIAMTERENE/HCTZ 75/50MG TABLET PO SCH (09:00)
[2018-05-31] MEDS: SIMETHICONE 80 MG CHEW TAB PO SCH ×2 (12:00→17:43)
[2018-05-31 12:08] LABS: FREE T4 (FREE THYROXINE) 0.84 ng/dL (0.76-1.46)
[2018-05-31 15:00] VITALS: BP 110/65
[2018-05-31 18:48] VITALS: BP 101/66
[2018-05-31] MEDS ORDERED: IRBESARTAN 150 MG TABLET PO SCH (21:00)
[2018-06-01 00:45] VITALS: BP 108/68
[2018-06-01] MEDS: HYDROmorphone 2 MG/ML, 1ML IVPush PRN (04:31)
[2018-06-01 05:19] LABS: BASOPHILS # (AUTO) 0.03 x10^3/uL (0-0.1); BASOPHILS % (AUTO) 0 % (0-1); EOSINOPHILS # (AUTO) 0.07 x10^3/uL (0-0.4); EOSINOPHILS % (AUTO) 1 % (1-7); LYMPHOCYTES # (AUTO) 1.79 x10^3/uL (1-3.4); LYMPHOCYTES % (AUTO) 20 % (22-44); MD NO; MEAN CORPUSCULAR HEMOGLOBIN 28.4 pg (27.0-34.8); MEAN CORPUSCULAR VOLUME 85.9 fL (80-100); MEAN PLATELET VOLUME 6.8 fL (7.4-10.4); MONOCYTES # (AUTO) 0.38 x10^3/uL (0.2-0.8); MONOCYTES % (AUTO) 4 % (2-9); NEUTROPHILS # (AUTO) 6.65 x10^3/uL (1.8-6.8); NEUTROPHILS % (AUTO) 75 % (42-75); PLATELET COUNT 447 x10^3/uL (130-400); RED BLOOD COUNT 3.97 x10^6/uL (3.82-5.3); RED CELL DISTRIBUTION WIDTH 20.2 % (9.6-15.2)
[2018-06-01] MEDS ORDERED: LEVOTHYROXINE 175 MCG TABLET PO SCH (06:00)
[2018-06-01] MEDS: ALBUTEROL/IPRATROPIUM 2.5MG/0.5MG, 3 ML NPPB SCH ×2 (06:56→10:31)
[2018-06-01] MEDS: BUDESONIDE 0.5 MG/2 ML INHA INH SCH (06:56)
[2018-06-01 07:35] VITALS: BP 109/72
[2018-06-01] MEDS: SIMETHICONE 80 MG CHEW TAB PO SCH ×2 (08:00→13:00)
[2018-06-01] MEDS: APIXABAN 5 MG TABLET PO SCH (08:27)
[2018-06-01] MEDS: TRIAMTERENE-HCTZ 37.5/25 MG TABLET PO SCH (08:28)
[2018-06-01] MEDS: OMEPRAZOLE 20 MG CAPSULE.DR PO SCH (08:28)
[2018-06-01] MEDS: OXYBUTYNIN CHLORIDE 5 MG TABLET PO SCH (08:28)
[2018-06-01] MEDS: AMLODIPINE 5 MG TABLET PO SCH (08:28)
[2018-06-01] MEDS ORDERED: CALCIUM CARBONATE 500 MG TAB.CHEW PO SCH (09:00)
[2018-06-01] MEDS ORDERED: DOCU-131 PO (10:48)
[2018-06-01] MEDS ORDERED: SIME80TA16 PO (10:48)
[2018-06-01] MEDS ORDERED: PRED20TA PO (10:48)
[2018-06-01] MEDS ORDERED: LEVO175T2 PO (10:48)
[2018-06-01] MEDS ORDERED: CALC200T24 PO (10:54)
[2018-06-01 12:06] VITALS: BP 118/76
== END 2018-06-01 14:35 | disposition home or self-care (01) | DRG 392 ==
LOC: ED 20:27 → EDIP 22:58 → 3NE 05-31 00:27 → DCLOUNGE 06-01 14:30
PROVIDERS: ADMIT Hospitalist; ATTEND Hospitalist
DX: K59.09 Other constipation (principal); D68.69 Other thrombophilia; K21.9 Gastro-esophageal reflux disease without esophagitis; M32.9 Systemic lupus erythematosus, unspecified; E78.00 Pure hypercholesterolemia, unspecified; E78.5 Hyperlipidemia, unspecified; E89.0 Postprocedural hypothyroidism; G47.33 Obstructive sleep apnea (adult) (pediatric); I11.9 Hypertensive heart disease without heart failure; I48.91 Unspecified atrial fibrillation; J44.9 Chronic obstructive pulmonary disease, unspecified; K57.90 Diverticulosis of intestine, part unspecified, without perforation or abscess without bleeding; N28.1 Cyst of kidney, acquired; Z80.3 Family history of malignant neoplasm of breast; Z82.49 Family history of ischemic heart disease and other diseases of the circulatory system; Z82.5 Family history of asthma and other chronic lower respiratory diseases; Z86.73 Personal history of transient ischemic attack (TIA), and cerebral infarction without residual deficits; Z87.891 Personal history of nicotine dependence; Z90.710 Acquired absence of both cervix and uterus; Z95.0 Presence of cardiac pacemaker
CPT/HCPCS: 36415; 71045; 74177; 76700; 80048; 80053; 81003; 83605; 83690; 83880; 84439; 84443; 84484; 85025; 85610; 93005; 94640; 96374; 96375; 96376; G0378; J1170; J2405; J7620; J7626; Q9967; C9113; J7030; J7512

== ENCOUNTER → 2018-06-22 | Outpatient (CLI) | payer MEDICARE, MEDICAID ==
[~2018-06-22] MED LIST changes: +DOCU-131 PO; +SIME80TA16 PO
== END | disposition home or self-care (01) ==
LOC: CFH 08:23
PROVIDERS: ATTEND Nurse Practitioner Family
DX: R59.1 Generalized enlarged lymph nodes (principal); M47.814 Spondylosis without myelopathy or radiculopathy, thoracic region
CPT/HCPCS: 71250

== ENCOUNTER → 2018-08-14 | Outpatient (CLI) | payer MEDICARE, MEDICAID | END | disposition home or self-care (01) | LOC: CFH 07:40 | PROVIDERS: ATTEND Family Medicine | DX: Z12.31 Encounter for screening mammogram for malignant neoplasm of breast (principal) | CPT/HCPCS: 77063; 77067 ==

== ENCOUNTER 2018-09-09 08:10 | Inpatient (IN) | payer MEDICARE, MEDICAID ==
[~2018-09-09] VITALS: Ht 160 cm; Wt 115.6 kg
[~2018-09-09 08:10] MED LIST changes: -OXYB5TAB PO; +OXYB5TAB2 PO
[2018-09-09 09:00] LABS: BASOPHILS # (AUTO) 0.05 x10^3/uL (0-0.1); BASOPHILS % (AUTO) 1 % (0-1); EOSINOPHILS % (AUTO) 1 % (1-7); LYMPHOCYTES # (AUTO) 2.39 x10^3/uL (1-3.4); LYMPHOCYTES % (AUTO) 25 % (22-44); MD NO; MEAN CORPUSCULAR HEMOGLOBIN 26.1 pg (27.0-34.8); MEAN CORPUSCULAR HGB CONC 31.6 g/dL (32.4-35.8); MEAN CORPUSCULAR VOLUME 82.7 fL (80-100); MEAN PLATELET VOLUME 7.1 fL (7.4-10.4); MONOCYTES # (AUTO) 0.45 x10^3/uL (0.2-0.8); MONOCYTES % (AUTO) 5 % (2-9); NEUTROPHILS # (AUTO) 6.77 x10^3/uL (1.8-6.8); NEUTROPHILS % (AUTO) 69 % (42-75); PLATELET COUNT 494 x10^3/uL (130-400); RED BLOOD COUNT 4.83 x10^6/uL (3.82-5.3); RED CELL DISTRIBUTION WIDTH 17.7 % (9.6-15.2)
[2018-09-09 09:04] LABS: INTERNATIONAL NORMALIZED RATIO 1.01 (0.93-1.1); PROTHROMBIN TIME 10.6 Seconds (9.6-11.5)
[2018-09-09 09:06] LABS: ALBUMIN 3.2 g/dL (3.4-5.0); ANION GAP 10 mmol/L (5-15); CHLORIDE 105 mmol/L (98-107)
[2018-09-09 09:12] LABS: ALANINE AMINOTRANSFERASE 16 U/L (12-78); ALKALINE PHOSPHATASE 91 U/L (45-117); BILIRUBIN,TOTAL 0.4 mg/dL (0.2-1.0); CREATININE 1.06 mg/dL (0.55-1.02); T4 (THYROXINE) 12.8 mcg/dL (4.8-13.9); TOTAL PROTEIN 7.2 g/dL (6.4-8.2); TROPONIN I < 0.015 ng/mL (0.000-0.045)
--- NOTE | 2018-09-09 09:37 | NUR ---
PT C/O 10/28 LEFT SCAPULA PAIN REPORTS IT IS BECOMMING MORE SHARP TIME PASSES, JEREMÍAS HUMPHREY
[2018-09-09] MEDS ORDERED: ONDANSETRON 2MG/ML, 2ML ONE (10:05)
[2018-09-09] MEDS ORDERED: MORPHINE SULFATE 4 MG/ML, 1ML ONE (10:06)
--- NOTE | 2018-09-09 10:16 | NUR ---
RECEIVED REPORT AND ASSUMED PT. CARE. PT. REMAINS MONITORED. VSS.
[2018-09-09] MEDS: MORPHINE SULFATE 4 MG/ML, 1ML IVPush PRN (10:27)
[2018-09-09] MEDS ORDERED: ONDANSETRON 2MG/ML, 2ML IVPush ONE (10:30)
--- NOTE | 2018-09-09 11:02 | NUR ---
CT WAITING FOR IV ACCESS
--- NOTE | 2018-09-09 11:28 | NUR ---
PT. IS NOW GOING TO VQ SCAN INSTEAD OF CT.
--- NOTE | 2018-09-09 13:20 | NUR ---
REPORT WAS CALLED TO TREVOR HERR. PT. IS READY FOR TRANSPORT TO CARDIAC TELE.
[2018-09-09 13:45] VITALS: BP 100/68
[2018-09-09] MEDS ORDERED: MEPO100V SC (13:50)
[2018-09-09] MEDS ORDERED: CORT80VI2 SC (13:50)
[2018-09-09] MEDS ORDERED: VALS160T3 PO (13:50)
[2018-09-09] MEDS ORDERED: DAPS25TA PO (13:50)
[2018-09-09] MEDS ORDERED: NITROGLYCERIN 0.4 MG BOTTLE (25 TABS) SL PRN (17:30)
[2018-09-09 17:53] VITALS: BP 99/67
[2018-09-09] MEDS ORDERED: MAALOX/HYOSCYAMINE/LIDOCAINE 45 ML BTL PO ONE (18:00)
[2018-09-09] MEDS ORDERED: ALBUTEROL/IPRATROPIUM 2.5MG/0.5MG, 3 ML ONE (18:19)
[2018-09-09] MEDS ORDERED: ALBUTEROL SULFATE 2.5 MG/3 ML NPPB PRN (18:30)
[2018-09-09 19:15] VITALS: BP 105/64
[2018-09-09] MEDS ORDERED: VALSARTAN 160 MG TABLET PO SCH (21:00)
[2018-09-09] MEDS ORDERED: TEMPLATE NON-FORMULARY MED. (Albuterol Sulfate (Ventolin Hfa) 90 MCG) IH SCH (21:00)
[2018-09-09] MEDS: ALBUTEROL/IPRATROPIUM 2.5MG/0.5MG, 3 ML NPPB SCH (21:00)
[2018-09-09] MEDS ORDERED: TEMPLATE NON-FORMULARY MED. (Tiotropium Bromide** (Spiriva**) 18 MCG) INH SCH (21:00)
[2018-09-09] MEDS: BUDESONIDE 0.5 MG/2 ML INHA NPPB SCH (21:00)
[2018-09-09] MEDS: DOXYCYCLINE 100MG TABLET PO SCH (21:07)
[2018-09-09] MEDS: APIXABAN 5 MG TABLET PO SCH (21:07)
[2018-09-09] MEDS: DAPSONE 100 MG TABLET PO SCH (21:07)
[2018-09-09] MEDS: SIMVASTATIN 10 MG TABLET PO SCH (21:07)
[2018-09-09 22:50] LABS: TROPONIN I < 0.015 ng/mL (0.000-0.045)
[2018-09-09] MEDS: SODIUM CHLORIDE 0.9% 1,000 ML IV SCH (23:47)
[2018-09-10 01:46] VITALS: BP 104/66
[2018-09-10] MEDS: ALBUTEROL/IPRATROPIUM 2.5MG/0.5MG, 3 ML NPPB SCH ×4 (03:00→20:44)
[2018-09-10] MEDS: PANTOPROZOLE 40MG TABLET PO SCH (05:26)
[2018-09-10] MEDS: LEVOTHYROXINE 175 MCG TABLET PO SCH (05:26)
[2018-09-10] MEDS ORDERED: OMEPRAZOLE 20 MG CAPSULE.DR PO SCH (06:00)
[2018-09-10] MEDS: BUDESONIDE 0.5 MG/2 ML INHA NPPB SCH ×2 (07:30→20:44)
[2018-09-10 07:56] VITALS: BP 103/68
[2018-09-10] MEDS: SODIUM CHLORIDE 0.9% 1,000 ML IV SCH (07:57)
[2018-09-10] MEDS: DAPSONE 100 MG TABLET PO SCH ×2 (07:57→21:49)
[2018-09-10] MEDS: DOXYCYCLINE 100MG TABLET PO SCH ×2 (07:58→21:02)
[2018-09-10] MEDS: OXYBUTYNIN CHLORIDE 5 MG TABLET PO SCH (07:58)
[2018-09-10] MEDS: APIXABAN 5 MG TABLET PO SCH ×2 (07:58→21:02)
[2018-09-10] MEDS: AMLODIPINE 5 MG TABLET PO SCH (08:34)
[2018-09-10] MEDS ORDERED: AMLODIPINE 5 MG TABLET PO SCH (09:00)
[2018-09-10] MEDS ORDERED: FLUTICASONE/VILANTEROL 200-25MCG/INH INH SCH (09:00)
[2018-09-10] MEDS ORDERED: TRIAMTERENE/HCTZ 75/50MG TABLET PO SCH (09:00)
[2018-09-10] MEDS: ONDANSETRON 2MG/ML, 2ML IVPush PRN (09:24)
[2018-09-10] MEDS ORDERED: ONDANSETRON 2MG/ML, 2ML ONE (09:24)
[2018-09-10 09:49] LABS: ANION GAP 9 mmol/L (5-15); CHLORIDE 104 mmol/L (98-107); CREATININE 0.91 mg/dL (0.55-1.02)
[2018-09-10] MEDS ORDERED: REGADENOSON 0.4 MG/5 ML SYRINGE ONE (10:54)
[2018-09-10] MEDS: POTASSIUM CHLORIDE 20 MEQ TAB.ER.PRT PO SCH ×2 (13:34→17:07)
[2018-09-10 14:34] VITALS: BP 113/71
[2018-09-10 19:31] VITALS: BP 110/62
[2018-09-10] MEDS ORDERED: SIMVASTATIN 5 MG TABLET ONE (20:58)
[2018-09-10] MEDS: VALSARTAN 160 MG TABLET PO SCH (21:02)
[2018-09-10] MEDS: SIMVASTATIN 10 MG TABLET PO SCH (21:02)
[2018-09-10] MEDS ORDERED: SODIUM CHLORIDE 0.9% 1,000 ML IV SCH (22:30)
[2018-09-11 01:44] VITALS: BP 118/62
[2018-09-11] MEDS: ALBUTEROL/IPRATROPIUM 2.5MG/0.5MG, 3 ML NPPB SCH ×4 (03:00→19:26)
[2018-09-11 05:19] LABS: ANION GAP 5 mmol/L (5-15); CALCIUM 8.2 mg/dL (8.5-10.1); CHLORIDE 106 mmol/L (98-107); CREATININE 0.89 mg/dL (0.55-1.02)
[2018-09-11] MEDS: LEVOTHYROXINE 175 MCG TABLET PO SCH (06:11)
[2018-09-11] MEDS: PANTOPROZOLE 40MG TABLET PO SCH (06:11)
[2018-09-11] MEDS: OXYBUTYNIN CHLORIDE 5 MG TABLET PO SCH (08:19)
[2018-09-11] MEDS: DOXYCYCLINE 100MG TABLET PO SCH ×2 (08:19→20:32)
[2018-09-11] MEDS: DAPSONE 100 MG TABLET PO SCH ×2 (08:20→20:37)
[2018-09-11] MEDS: AMLODIPINE 5 MG TABLET PO SCH (08:21)
[2018-09-11] MEDS: APIXABAN 5 MG TABLET PO SCH ×2 (08:21→20:33)
[2018-09-11] MEDS: BUDESONIDE 0.5 MG/2 ML INHA NPPB SCH ×2 (08:35→19:26)
[2018-09-11 08:50] VITALS: BP 109/73
[2018-09-11 13:00] VITALS: BP 114/76
[2018-09-11 19:56] VITALS: BP 109/70
[2018-09-11] MEDS: VALSARTAN 160 MG TABLET PO SCH (20:32)
[2018-09-11] MEDS: SIMVASTATIN 10 MG TABLET PO SCH (20:33)
[2018-09-12 01:59] VITALS: BP 119/73
[2018-09-12] MEDS: ALBUTEROL/IPRATROPIUM 2.5MG/0.5MG, 3 ML NPPB SCH ×5 (03:00→20:20)
[2018-09-12] MEDS: PANTOPROZOLE 40MG TABLET PO SCH (05:49)
[2018-09-12] MEDS: LEVOTHYROXINE 175 MCG TABLET PO SCH (05:49)
[2018-09-12] MEDS: BUDESONIDE 0.5 MG/2 ML INHA NPPB SCH ×2 (06:10→20:20)
[2018-09-12 07:30] VITALS: BP 119/77
[2018-09-12] MEDS: APIXABAN 5 MG TABLET PO SCH ×2 (07:38→19:56)
[2018-09-12] MEDS: AMLODIPINE 5 MG TABLET PO SCH (07:38)
[2018-09-12] MEDS: DOXYCYCLINE 100MG TABLET PO SCH ×2 (07:38→19:56)
[2018-09-12] MEDS: DAPSONE 100 MG TABLET PO SCH ×2 (07:38→19:56)
[2018-09-12] MEDS: OXYBUTYNIN CHLORIDE 5 MG TABLET PO SCH (07:38)
[2018-09-12 07:45] VITALS: BP 148/93
[2018-09-12] MEDS ORDERED: BENZONATATE 100 MG CAPSULE PO SCH (10:30)
[2018-09-12] MEDS ORDERED: GUAIFENESIN ER 600 MG TABLET PO SCH (10:30)
[2018-09-12] MEDS: BENZONATATE 100 MG CAPSULE PO SCH ×2 (12:27→19:55)
[2018-09-12] MEDS: GUAIFENESIN ER 600 MG TABLET PO SCH (12:28)
[2018-09-12 12:40] VITALS: BP 121/76
[2018-09-12 19:11] VITALS: BP 124/78
[2018-09-12] MEDS: SIMVASTATIN 10 MG TABLET PO SCH (19:56)
[2018-09-12] MEDS: VALSARTAN 160 MG TABLET PO SCH (19:56)
[2018-09-13] MEDS ORDERED: OMNIPAQUE 350 MG/ML, 100ML BOTTLE ONE (00:20)
[2018-09-13 01:09] VITALS: BP 134/84
[2018-09-13] MEDS: ALBUTEROL/IPRATROPIUM 2.5MG/0.5MG, 3 ML NPPB SCH ×4 (03:00→19:01)
[2018-09-13] MEDS: ONDANSETRON 2MG/ML, 2ML IVPush PRN ×2 (04:02→10:03)
[2018-09-13] MEDS ORDERED: MORPHINE SULFATE 4 MG/ML, 1ML IVPush ONE (04:30)
[2018-09-13 05:04] LABS: BASOPHILS # (AUTO) 0.07 x10^3/uL (0-0.1); BASOPHILS % (AUTO) 1 % (0-1); EOSINOPHILS # (AUTO) 0.04 x10^3/uL (0-0.4); EOSINOPHILS % (AUTO) 0 % (1-7); LYMPHOCYTES % (AUTO) 24 % (22-44); MD NO; MEAN CORPUSCULAR HEMOGLOBIN 26.8 pg (27.0-34.8); MEAN CORPUSCULAR HGB CONC 31.4 g/dL (32.4-35.8); MEAN CORPUSCULAR VOLUME 85.2 fL (80-100); MEAN PLATELET VOLUME 6.9 fL (7.4-10.4); MONOCYTES # (AUTO) 0.65 x10^3/uL (0.2-0.8); MONOCYTES % (AUTO) 5 % (2-9); NEUTROPHILS # (AUTO) 8.22 x10^3/uL (1.8-6.8); NEUTROPHILS % (AUTO) 69 % (42-75); PLATELET COUNT 469 x10^3/uL (130-400); RED BLOOD COUNT 4.15 x10^6/uL (3.82-5.3); RED CELL DISTRIBUTION WIDTH 17.9 % (9.6-15.2)
[2018-09-13 05:12] LABS: ANION GAP 4 mmol/L (5-15); CALCIUM 8.2 mg/dL (8.5-10.1); CHLORIDE 107 mmol/L (98-107)
[2018-09-13 05:15] LABS: CREATININE 0.78 mg/dL (0.55-1.02)
[2018-09-13] MEDS: PANTOPROZOLE 40MG TABLET PO SCH (05:44)
[2018-09-13] MEDS: LEVOTHYROXINE 175 MCG TABLET PO SCH (05:45)
[2018-09-13 06:53] VITALS: BP 125/84
[2018-09-13] MEDS: BUDESONIDE 0.5 MG/2 ML INHA NPPB SCH ×2 (07:15→19:02)
[2018-09-13] MEDS: GUAIFENESIN ER 600 MG TABLET PO SCH (08:19)
[2018-09-13] MEDS: DOXYCYCLINE 100MG TABLET PO SCH ×2 (08:19→21:03)
[2018-09-13] MEDS: APIXABAN 5 MG TABLET PO SCH ×2 (08:19→21:03)
[2018-09-13] MEDS: AMLODIPINE 5 MG TABLET PO SCH (08:19)
[2018-09-13] MEDS: BENZONATATE 100 MG CAPSULE PO SCH ×2 (08:19→21:03)
[2018-09-13] MEDS: DAPSONE 100 MG TABLET PO SCH ×2 (08:19→21:04)
[2018-09-13] MEDS: OXYBUTYNIN CHLORIDE 5 MG TABLET PO SCH (08:19)
[2018-09-13] MEDS ORDERED: ALUMINUM/MAG/SIMETHICONE 30 ML UDC PO ONE (11:00)
[2018-09-13 12:33] VITALS: BP 124/81
[2018-09-13 19:46] VITALS: BP 125/77
[2018-09-13] MEDS: VALSARTAN 160 MG TABLET PO SCH (21:03)
[2018-09-13] MEDS: SIMVASTATIN 10 MG TABLET PO SCH (21:03)
[2018-09-14 01:14] VITALS: BP 119/63
[2018-09-14] MEDS: LEVOTHYROXINE 175 MCG TABLET PO SCH (05:12)
[2018-09-14] MEDS: PANTOPROZOLE 40MG TABLET PO SCH (05:12)
[2018-09-14] MEDS: ALBUTEROL/IPRATROPIUM 2.5MG/0.5MG, 3 ML NPPB SCH ×7 (05:16→22:20)
[2018-09-14] MEDS: BUDESONIDE 0.5 MG/2 ML INHA NPPB SCH ×2 (07:26→18:46)
[2018-09-14 07:29] VITALS: BP 148/93
[2018-09-14] MEDS: BENZONATATE 100 MG CAPSULE PO SCH ×2 (07:58→20:05)
[2018-09-14] MEDS: DAPSONE 100 MG TABLET PO SCH ×2 (07:58→20:05)
[2018-09-14] MEDS: DOXYCYCLINE 100MG TABLET PO SCH ×2 (07:58→20:05)
[2018-09-14] MEDS: GUAIFENESIN ER 600 MG TABLET PO SCH (07:58)
[2018-09-14] MEDS: APIXABAN 5 MG TABLET PO SCH ×2 (07:58→20:06)
[2018-09-14] MEDS: AMLODIPINE 5 MG TABLET PO SCH (07:58)
[2018-09-14] MEDS: OXYBUTYNIN CHLORIDE 5 MG TABLET PO SCH (07:58)
[2018-09-14 13:12] VITALS: BP 112/73
[2018-09-14] MEDS ORDERED: methylPREDNISolone SOD SUCC 125 MG/2 ML IVPush ONE (14:36)
[2018-09-14] MEDS ORDERED: ALBUTEROL SULFATE 2.5 MG/3 ML NPPB PRN (15:30)
[2018-09-14] MEDS ORDERED: FUROSEMIDE 20 MG/2 ML IV ONE (16:30)
[2018-09-14] MEDS ORDERED: ALBUTEROL/IPRATROPIUM 2.5MG/0.5MG, 3 ML NPPB SCH (18:00)
[2018-09-14 18:35] VITALS: BP 122/70
[2018-09-14] MEDS: methylPREDNISolone SOD SUCC 125 MG/2 ML IVPush SCH (20:04)
[2018-09-14] MEDS: SIMVASTATIN 10 MG TABLET PO SCH (20:05)
[2018-09-14] MEDS: VALSARTAN 160 MG TABLET PO SCH (20:06)
[2018-09-15 01:56] VITALS: BP 114/86
[2018-09-15] MEDS: methylPREDNISolone SOD SUCC 125 MG/2 ML IVPush SCH ×4 (02:21→20:30)
[2018-09-15] MEDS: ALBUTEROL/IPRATROPIUM 2.5MG/0.5MG, 3 ML NPPB SCH ×6 (02:28→22:53)
[2018-09-15] MEDS: LEVOTHYROXINE 175 MCG TABLET PO SCH (05:54)
[2018-09-15] MEDS: PANTOPROZOLE 40MG TABLET PO SCH (05:54)
[2018-09-15] MEDS: BUDESONIDE 0.5 MG/2 ML INHA NPPB SCH ×2 (06:28→18:58)
[2018-09-15 07:04] VITALS: BP 145/87
[2018-09-15] MEDS: GUAIFENESIN ER 600 MG TABLET PO SCH (07:32)
[2018-09-15] MEDS: AMLODIPINE 5 MG TABLET PO SCH (07:32)
[2018-09-15] MEDS: DAPSONE 100 MG TABLET PO SCH ×2 (07:33→20:31)
[2018-09-15] MEDS: OXYBUTYNIN CHLORIDE 5 MG TABLET PO SCH (07:33)
[2018-09-15] MEDS: BENZONATATE 100 MG CAPSULE PO SCH ×2 (07:33→20:33)
[2018-09-15] MEDS: APIXABAN 5 MG TABLET PO SCH ×2 (07:33→20:32)
[2018-09-15] MEDS: DOXYCYCLINE 100MG TABLET PO SCH ×2 (07:35→20:31)
[2018-09-15 13:41] VITALS: BP 127/77
[2018-09-15] MEDS ORDERED: FUROSEMIDE 20 MG/2 ML IV ONE (14:30)
[2018-09-15 16:01] LABS: CALCIUM 8.5 mg/dL (8.5-10.1); CHLORIDE 101 mmol/L (98-107)
[2018-09-15 16:05] LABS: ANION GAP 8 mmol/L (5-15); CREATININE 1.06 mg/dL (0.55-1.02)
[2018-09-15 19:19] VITALS: BP 106/66
[2018-09-15] MEDS: SIMVASTATIN 10 MG TABLET PO SCH (20:31)
[2018-09-15] MEDS: VALSARTAN 160 MG TABLET PO SCH (20:35)
[2018-09-16 01:33] VITALS: BP 117/68
[2018-09-16] MEDS: ALBUTEROL/IPRATROPIUM 2.5MG/0.5MG, 3 ML NPPB SCH ×6 (02:35→22:30)
[2018-09-16] MEDS: methylPREDNISolone SOD SUCC 125 MG/2 ML IVPush SCH ×2 (02:56→08:03)
[2018-09-16 05:02] LABS: ANION GAP 4 mmol/L (5-15); CALCIUM 8.3 mg/dL (8.5-10.1); CHLORIDE 102 mmol/L (98-107); CREATININE 0.86 mg/dL (0.55-1.02)
[2018-09-16] MEDS: LEVOTHYROXINE 175 MCG TABLET PO SCH (06:11)
[2018-09-16] MEDS: PANTOPROZOLE 40MG TABLET PO SCH (06:11)
[2018-09-16 06:15] VITALS: BP 151/90
[2018-09-16] MEDS: BUDESONIDE 0.5 MG/2 ML INHA NPPB SCH ×2 (07:05→18:26)
[2018-09-16] MEDS: AMLODIPINE 5 MG TABLET PO SCH (08:03)
[2018-09-16] MEDS: DOXYCYCLINE 100MG TABLET PO SCH ×2 (08:03→20:40)
[2018-09-16] MEDS: DAPSONE 100 MG TABLET PO SCH ×2 (08:04→20:39)
[2018-09-16] MEDS: GUAIFENESIN ER 600 MG TABLET PO SCH (08:04)
[2018-09-16] MEDS: APIXABAN 5 MG TABLET PO SCH ×2 (08:04→20:40)
[2018-09-16] MEDS: BENZONATATE 100 MG CAPSULE PO SCH ×2 (08:04→20:39)
[2018-09-16] MEDS: OXYBUTYNIN CHLORIDE 5 MG TABLET PO SCH (08:04)
[2018-09-16] MEDS: MORPHINE SULFATE 4 MG/ML, 1ML IVPush PRN (09:57)
[2018-09-16] MEDS: ONDANSETRON 2MG/ML, 2ML IVPush PRN (10:03)
[2018-09-16 14:35] VITALS: BP 122/79
[2018-09-16] MEDS ORDERED: PRED5TAB PO (16:01)
[2018-09-16] MEDS ORDERED: IPRA3AMP30 NPPB (16:01)
[2018-09-16] MEDS ORDERED: METOCLOPRAMIDE 5 MG/ML, 2ML IVPush ONE (17:00)
[2018-09-16 19:11] VITALS: BP 125/77
[2018-09-16] MEDS: SIMVASTATIN 10 MG TABLET PO SCH (20:39)
[2018-09-16] MEDS: VALSARTAN 160 MG TABLET PO SCH (20:40)
[2018-09-17] MEDS: ALBUTEROL/IPRATROPIUM 2.5MG/0.5MG, 3 ML NPPB SCH ×3 (02:23→09:52)
[2018-09-17 03:04] VITALS: BP 147/99
[2018-09-17] MEDS: PANTOPROZOLE 40MG TABLET PO SCH (05:44)
[2018-09-17] MEDS: LEVOTHYROXINE 175 MCG TABLET PO SCH (05:44)
[2018-09-17] MEDS: BUDESONIDE 0.5 MG/2 ML INHA NPPB SCH (06:23)
[2018-09-17 07:22] VITALS: BP 140/85
[2018-09-17] MEDS: APIXABAN 5 MG TABLET PO SCH (07:51)
[2018-09-17] MEDS: DAPSONE 100 MG TABLET PO SCH (07:51)
[2018-09-17] MEDS: BENZONATATE 100 MG CAPSULE PO SCH (07:51)
[2018-09-17] MEDS: DOXYCYCLINE 100MG TABLET PO SCH (07:51)
[2018-09-17] MEDS: AMLODIPINE 5 MG TABLET PO SCH (07:52)
[2018-09-17] MEDS: GUAIFENESIN ER 600 MG TABLET PO SCH (07:52)
[2018-09-17] MEDS: OXYBUTYNIN CHLORIDE 5 MG TABLET PO SCH (07:53)
[2018-09-17] MEDS ORDERED: COMP1EAC87 (10:53)
[2018-11-21] MEDS ORDERED: IVAB5TAB PO (22:01)
[2019-01-27] MEDS ORDERED: METR500T PO (13:09)
[2019-01-27] MEDS ORDERED: SIME80TA16 PO (13:09)
[2019-01-27] MEDS ORDERED: CIPR500T87 PO (13:09)
[2019-01-27] MEDS ORDERED: DOCU-131 PO (13:09)
== END 2018-09-17 12:02 | disposition home or self-care (01) | DRG 291 ==
LOC: ED 09:36 → EDIP 12:45 → 5SO 13:32 → 3NE 09-11 15:59
PROVIDERS: ADMIT Internal Medicine; ATTEND Internal Medicine
PROC: 5A09357 Assistance with Respiratory Ventilation, Less than 24 Consecutive Hours, Continuous Positive Airway Pressure (ICD-10-PCS; principal; 2018-09-13)
PROC: 5A09357 Assistance with Respiratory Ventilation, Less than 24 Consecutive Hours, Continuous Positive Airway Pressure (ICD-10-PCS; 2018-09-14)
PROC: 5A09357 Assistance with Respiratory Ventilation, Less than 24 Consecutive Hours, Continuous Positive Airway Pressure (ICD-10-PCS; 2018-09-15)
PROC: 5A09357 Assistance with Respiratory Ventilation, Less than 24 Consecutive Hours, Continuous Positive Airway Pressure (ICD-10-PCS; 2018-09-16)
PROC: 5A09357 Assistance with Respiratory Ventilation, Less than 24 Consecutive Hours, Continuous Positive Airway Pressure (ICD-10-PCS; 2018-09-17)
DX: I11.0 Hypertensive heart disease with heart failure (principal); J96.21 Acute and chronic respiratory failure with hypoxia; D68.59 Other primary thrombophilia; J98.11 Atelectasis; J45.901 Unspecified asthma with (acute) exacerbation; J44.1 Chronic obstructive pulmonary disease with (acute) exacerbation; I50.33 Acute on chronic diastolic (congestive) heart failure; E78.00 Pure hypercholesterolemia, unspecified; E78.5 Hyperlipidemia, unspecified; E87.6 Hypokalemia; E89.0 Postprocedural hypothyroidism; G43.909 Migraine, unspecified, not intractable, without status migrainosus; G47.33 Obstructive sleep apnea (adult) (pediatric); I35.8 Other nonrheumatic aortic valve disorders; K57.90 Diverticulosis of intestine, part unspecified, without perforation or abscess without bleeding; I48.91 Unspecified atrial fibrillation; K21.9 Gastro-esophageal reflux disease without esophagitis; M32.9 Systemic lupus erythematosus, unspecified; Z87.891 Personal history of nicotine dependence; Z79.01 Long term (current) use of anticoagulants; Z88.8 Allergy status to other drugs, medicaments and biological substances; Z80.3 Family history of malignant neoplasm of breast; Z82.49 Family history of ischemic heart disease and other diseases of the circulatory system; Z86.73 Personal history of transient ischemic attack (TIA), and cerebral infarction without residual deficits; Z90.710 Acquired absence of both cervix and uterus; Z95.0 Presence of cardiac pacemaker
CPT/HCPCS: 36415; 36600; 71045; 71250; 71275; 78452; 78582; 80048; 80053; 82803; 83735; 83880; 84436; 84443; 84484; 85025; 85379; 85610; 85730; 87070; 87205; 93005; 93017; 93306; 94640; 94660; 96374; 96375; 99285; G0378; J2405; J2785; J7613; J7620; J7626; Q9967; A9502; A9540; A9558; C9898; J1940; J2270; J2765; J2930; J7030; J7512

== ENCOUNTER 2018-11-21 13:58 | Inpatient (IN) | payer MEDICARE, MEDICAID ==
[~2018-11-21] VITALS: Ht 160 cm; Wt 114.1 kg
[2018-11-27 07:23] VITALS: BP 117/81
== END 2018-11-27 12:55 | disposition home or self-care (01) | DRG 643 ==
LOC: ED 15:49 → EDIP 18:21 → 5SO 19:02 → DCLOUNGE 11-27 12:55
PROVIDERS: ADMIT Internal Medicine; ATTEND Internal Medicine
PROC: 5A09357 Assistance with Respiratory Ventilation, Less than 24 Consecutive Hours, Continuous Positive Airway Pressure (ICD-10-PCS; principal; 2018-11-21)
PROC: 5A09357 Assistance with Respiratory Ventilation, Less than 24 Consecutive Hours, Continuous Positive Airway Pressure (ICD-10-PCS; 2018-11-22)
PROC: 5A09357 Assistance with Respiratory Ventilation, Less than 24 Consecutive Hours, Continuous Positive Airway Pressure (ICD-10-PCS; 2018-11-23)
PROC: 5A09357 Assistance with Respiratory Ventilation, Less than 24 Consecutive Hours, Continuous Positive Airway Pressure (ICD-10-PCS; 2018-11-24)
PROC: 5A09357 Assistance with Respiratory Ventilation, Less than 24 Consecutive Hours, Continuous Positive Airway Pressure (ICD-10-PCS; 2018-11-25)
PROC: 5A09357 Assistance with Respiratory Ventilation, Less than 24 Consecutive Hours, Continuous Positive Airway Pressure (ICD-10-PCS; 2018-11-26)
PROC: 5A09357 Assistance with Respiratory Ventilation, Less than 24 Consecutive Hours, Continuous Positive Airway Pressure (ICD-10-PCS; 2018-11-27)
DX: E27.40 Unspecified adrenocortical insufficiency (principal); J96.21 Acute and chronic respiratory failure with hypoxia; D68.59 Other primary thrombophilia; N39.0 Urinary tract infection, site not specified; E46 Unspecified protein-calorie malnutrition; Z68.41 Body mass index [BMI] 40.0-44.9, adult; I24.9 Acute ischemic heart disease, unspecified; G90.8 Other disorders of autonomic nervous system; M32.9 Systemic lupus erythematosus, unspecified; B95.2 Enterococcus as the cause of diseases classified elsewhere; E11.9 Type 2 diabetes mellitus without complications; E66.01 Morbid (severe) obesity due to excess calories; E78.00 Pure hypercholesterolemia, unspecified; E78.5 Hyperlipidemia, unspecified; E89.0 Postprocedural hypothyroidism; G47.33 Obstructive sleep apnea (adult) (pediatric); I10 Essential (primary) hypertension; I48.91 Unspecified atrial fibrillation; J44.9 Chronic obstructive pulmonary disease, unspecified; K21.9 Gastro-esophageal reflux disease without esophagitis; Z79.01 Long term (current) use of anticoagulants; Z79.890 Hormone replacement therapy; Z80.3 Family history of malignant neoplasm of breast; Z82.49 Family history of ischemic heart disease and other diseases of the circulatory system; Z86.73 Personal history of transient ischemic attack (TIA), and cerebral infarction without residual deficits; Z90.710 Acquired absence of both cervix and uterus; Z87.891 Personal history of nicotine dependence; Z95.0 Presence of cardiac pacemaker; Z88.8 Allergy status to other drugs, medicaments and biological substances
CPT/HCPCS: 36415; 71045; 74177; 80048; 80069; 81001; 82040; 82533; 82962; 83735; 83880; 84100; 84443; 84484; 85025; 85379; 87077; 87086; 87186; 93005; 93306; 93880; 94640; 94660; 96361; 96374; G0378; J0696; J2405; J7620; J7626; Q9967; J3475; J7030

== ENCOUNTER → 2019-06-11 | Outpatient (CLI) | payer MEDICARE, MEDICAID ==
[~2019-06-11] MED LIST changes: +COMP1EAC87; +CORT80VI2 SC; +DAPS25TA PO; -IRBE150T25 PO; +IRBE150T9 PO; +IVAB5TAB PO; +MEPO100V SC; +OXYB-39 PO; -OXYB5TAB2 PO; +PRED5TAB PO; +SIMV10TA18 PO; -SIMV10TA3 PO
== END | disposition home or self-care (01) ==
LOC: CFH 07:44
PROVIDERS: ATTEND Internal Medicine Cardiovascular Disease
DX: I08.0 Rheumatic disorders of both mitral and aortic valves (principal); E78.5 Hyperlipidemia, unspecified; I10 Essential (primary) hypertension; Z87.891 Personal history of nicotine dependence
CPT/HCPCS: 93306

== ENCOUNTER 2019-10-14 17:53 | Emergency (ER) | payer MEDICAID, MEDICARE ==
[~2019-10-14] VITALS: Ht 160 cm; Wt 79.0 kg
[~2019-10-14 17:53] MED LIST changes: +AMLO-150 PO; +BISA10SU4 PR; +DILT180C53 PO; +LACT10SO24 PO; +OSEL75CA14 PO; +PRED10TA PO; +SENN-193 PO
[2019-10-14 18:04] VITALS: BP 113/77
[2019-10-14] MEDS ORDERED: SODIUM CHLORIDE FLUSH 10ML SYR IVF ONE (18:30)
[2019-10-14] MEDS ORDERED: PROPOFOL 10 MG/ML, 20ML IVPush ONE (19:00)
--- NOTE | 2019-10-14 19:55 | NUR ---
PT IN BED, ATTACHED TO MONITORS. IV STARTED IN RAC. LAB AT BEDSIDE. CRASH CART IN ROOM. CONSENT SIGNED AT BEDSIDE. ERP NOTIFIED. PT DENIES ANY CURRENT NEEDS OR CONCERNS. CALL LIGHT IN REACH, SON AT BEDSIDE.
[2019-10-14 20:20] LABS: BASOPHILS # (AUTO) 0.05 x10^3/uL (0-0.1); BASOPHILS % (AUTO) 1 % (0-1); EOSINOPHILS # (AUTO) 0.02 x10^3/uL (0-0.4); EOSINOPHILS % (AUTO) 0 % (1-7); LYMPHOCYTES # (AUTO) 2.89 x10^3/uL (1-3.4); LYMPHOCYTES % (AUTO) 37 % (22-44); MD NO; MEAN CORPUSCULAR HEMOGLOBIN 27.5 pg (27.0-34.8); MEAN CORPUSCULAR HGB CONC 32.7 g/dL (32.4-35.8); MEAN CORPUSCULAR VOLUME 84.2 fL (80-100); MEAN PLATELET VOLUME 8.1 fL (7.4-10.4); MONOCYTES # (AUTO) 0.59 x10^3/uL (0.2-0.8); MONOCYTES % (AUTO) 8 % (2-9); NEUTROPHILS # (AUTO) 4.33 x10^3/uL (1.8-6.8); NEUTROPHILS % (AUTO) 55 % (42-75); PLATELET COUNT 464 x10^3/uL (130-400); RED BLOOD COUNT 4.73 x10^6/uL (3.82-5.3); RED CELL DISTRIBUTION WIDTH 17.2 % (9.6-15.2)
[2019-10-14 20:24] LABS: PROTHROMBIN TIME 10.6 Seconds (9.6-11.5)
[2019-10-14 20:25] LABS: ALANINE AMINOTRANSFERASE 15 U/L (12-78); ALBUMIN 3.4 g/dL (3.4-5.0); ANION GAP 9 mmol/L (5-15); CALCIUM 9.1 mg/dL (8.5-10.1); CHLORIDE 105 mmol/L (98-107); CREATININE 1.07 mg/dL (0.55-1.02); T4 (THYROXINE) 13.6 mcg/dL (4.8-13.9)
[2019-10-14] MEDS ORDERED: LIDOCAINE-MPF 1%, 5ML ONE ×2 (20:33→20:36)
[2019-10-14 20:36] LABS: ALKALINE PHOSPHATASE 76 U/L (45-117); BILIRUBIN,TOTAL 0.2 mg/dL (0.2-1.0)
[2019-10-14] MEDS ORDERED: POTASSIUM CHLORIDE 20 MEQ TAB.ER.PRT PO ONE (21:00)
[2019-10-14] MEDS ORDERED: PROPOFOL 10 MG/ML, 20ML ONE (21:01)
[2019-10-14] MEDS ORDERED: POTASSIUM CHLORIDE 20 MEQ TAB.ER.PRT ONE (21:08)
--- NOTE | 2019-10-14 21:16 | NUR ---
CARDIOVERSION COMPLETED WITHOUT ISSUE. EKG POST PROCEDURE SHOWS PT IN NSR. PLEASE SEE PROCEDURAL PAPERWORK FOR FURTHER INFO. SON RETURNED TO BEDSIDE. PT A&Ox4. PT MEDICATED PER JUN. IV DISCONTINUED, PRESSURE APPLIED. PT DENIES ANY FURTHER NEEDS OR CONCERNS AT THIS TIME. CALL LIGHT IN REACH.
--- NOTE | 2019-10-14 21:25 | NUR ---
CHARTED UNDER WRONG USER: CARDIOVERSION COMPLETED WITHOUT ISSUE. EKG POST PROCEDURE SHOWS PT IN NSR. PLEASE SEE PROCEDURAL PAPERWORK FOR FURTHER INFO. SON RETURNED TO BEDSIDE. PT A&Ox4. PT MEDICATED PER JUN. IV DISCONTINUED, PRESSURE APPLIED. PT DENIES ANY FURTHER NEEDS OR CONCERNS AT THIS TIME. CALL LIGHT IN REACH.
== END 2019-10-14 21:49 | disposition home or self-care (01) ==
LOC: ED 21:25
DX: I48.91 Unspecified atrial fibrillation (principal); R00.2 Palpitations; E87.6 Hypokalemia; R06.00 Dyspnea, unspecified; R00.0 Tachycardia, unspecified; I10 Essential (primary) hypertension; E11.9 Type 2 diabetes mellitus without complications; J44.9 Chronic obstructive pulmonary disease, unspecified; K21.9 Gastro-esophageal reflux disease without esophagitis; E78.00 Pure hypercholesterolemia, unspecified; E78.5 Hyperlipidemia, unspecified; Z90.89 Acquired absence of other organs; Z95.0 Presence of cardiac pacemaker; Z90.710 Acquired absence of both cervix and uterus; Z87.891 Personal history of nicotine dependence; Z86.73 Personal history of transient ischemic attack (TIA), and cerebral infarction without residual deficits
CPT/HCPCS: 36415; 71045; 80053; 83735; 84436; 84443; 85025; 85610; 85730; 92960; 93005; 99152; 99291

== ENCOUNTER → 2020-01-07 | Outpatient (CLI) | payer MEDICARE, MEDICAID ==
[~2020-01-07] MED LIST changes: +OMNIPAQUE 350 MG/ML, 75ML BOTTLE ONE
[2020-01-07 09:30] LABS: CREATININE 0.78 mg/dL (0.55-1.02)
== END | disposition home or self-care (01) ==
LOC: RAD 08:51
PROVIDERS: ATTEND Internal Medicine
DX: R91.8 Other nonspecific abnormal finding of lung field (principal); J98.4 Other disorders of lung; I77.810 Thoracic aortic ectasia; Q27.8 Other specified congenital malformations of peripheral vascular system
CPT/HCPCS: 36415; 71260; 82565; Q9967